=== PATIENT | male | born 1955 | race Caucasian/White ===

== ENCOUNTER 2019-01-02 15:03 | Outpatient (CLI) | payer MEDICARE ==
--- NOTE | 2019-01-02 16:53 | ULT ---
BILATERAL UPPER EXTREMITY VENOUS DOPPLER ULTRASOUND FOR DIALYSIS ACCESS: Date: 01/02/19 HISTORY: End-stage renal disease. FINDINGS: RIGHT UPPER EXTREMITY: The right cephalic vein measures 4.3 mm in the proximal arm, 3.1 mm in the mid arm, 4.0 mm in the dis idania arm, 4.9 mm in the antecubital fossa, 1.9 mm in the proximal forearm, 2.2 mm in the mid forearm, and 1.6 mm in the distal forearm. The right basilic vein measures 7.7 mm in the proximal arm, 5.5 mm in the mid arm, 5.8 mm in the dist al arm, 4.4 mm in the antecubital fossa, 2.0 mm in the proximal forearm, 1.2 mm in the mid forearm, a nd 2.3 mm in the distal forearm. The right brachial artery measures 4.3 mm, radial artery measures 1.9 mm, and ulnar artery measures 1 .7 mm. LEFT UPPER EXTREMITY: The left cephalic vein measures 5.2 mm in the proximal arm, 5.2 mm in the mid arm, 5.2 mm in the dist al arm, 5.8 mm in the antecubital fossa, 3.4 mm in the proximal forearm, 2.1 mm in the mid forearm, a nd 1.7 mm in the distal forearm. The left basilic vein measures 3.9 mm in the proximal arm, 3.8 mm in the mid arm, 3.1 mm in the dista l arm, 3.7 mm in the antecubital fossa, 2.0 mm in the proximal forearm, 1.5 mm in the mid forearm, an d 1.9 mm in the distal forearm. The left brachial artery measures 4.0 mm, radial artery measures 2.3 mm, and ulnar artery measures 1. 5 mm. POS: OFF
== END 2019-01-02 15:04 | disposition home or self-care (01) ==
LOC: BICULT 15:03
PROVIDERS: ATTEND Family Medicine
DX: Z49.01 Encounter for fitting and adjustment of extracorporeal dialysis catheter (principal)
CPT/HCPCS: 93970; G0365

== ENCOUNTER 2019-03-25 11:46 | Day surgery (SDC) | payer MEDICARE ==
[2019-03-24 15:04] VITALS: BMI 25.8
[2019-03-25 12:19] LABS: #Basophils 0.1 thou/uL (0.0-0.2); #Eosinphils 0.4 thou/uL (0.0-0.7); #Monocytes 1.5 thou/uL (0.11-0.59); #Neutrophils 5.8 thou/uL (1.40-6.50); %Eosinophils 4.1 % (0.0-10.0); %Lymphocytes 27.9 % (21.0-51.0); %Monocytes 13.4 % (0.0-10.0); %Neutrophils 53.6 % (42.0-75.0); Hemoglobin 13.3 g/dL (14.0-18.0); Mean Corpuscular HGB CONC 31.8 g/dL (32.0-36.0); Mean Corpuscular Hemoglobin 31.8 pg (27.0-31.0); Mean Platelet Volume 8.8 fL (7.4-10.4); Platelet Count 233 thou/uL (130-400); RBC Distribution Width 15.1 % (11.5-14.5); Red Blood Cell (RBC) Count 4.17 mill/uL (4.70-6.10); White Blood Cell (WBC) Count 10.9 thou/uL (4.8-10.8)
[2019-03-25 12:38] LABS: Anion Gap 20 mmol/L (10-20); BUN (Urea Nitrogen) 44 mg/dL (8.4-25.7); Calc. Creatinine Clearance 8 mL/min (70-130); Calcium 9.2 mg/dL (7.8-10.44); Carbon Dioxide 26 mmol/L (23-31); Chloride 96 mmol/L (98-107); Estimated GFR-MDRD 5; Glucose 85 mg/dL (80-115); Potassium 5.8 mmol/L (3.5-5.1); Sodium 136 mmol/L (136-145)
[2019-03-25] MEDS ORDERED: ceFAZolin Sodium (SDC) 2 GM/100 ML BAG ONE (12:51)
[2019-03-25] MEDS ORDERED: Midazolam HCl 2 mg/2 ml Vial ONE ×2 (12:59→13:14)
[2019-03-25] MEDS ORDERED: Fentanyl 100 MCG/2 ML VIAL ONE (12:59)
[2019-03-25] MEDS ORDERED: Ioversol 68 % 50 ML VIAL ONE (13:12)
[2019-03-25] MEDS ORDERED: Bupivacaine/Epinephrine 0.25% 30 ML VIAL ONE (13:12)
[2019-03-25] MEDS ORDERED: Lidocaine 2% PF 5 ML VIAL ONE (13:12)
[2019-03-25] MEDS ORDERED: Heparin 5,000 UNITS/ML VIAL ONE (13:12)
[2019-03-25] MEDS ORDERED: Protamine Sulfate 50 MG/5 ML VIAL ONE (13:12)
[2019-03-25] MEDS ORDERED: Meperidine HCl/PF 25 MG/ML VIAL ONE (13:14)
[2019-03-25] MEDS ORDERED: Propofol 500 MG/50 ML VIAL ONE (14:13)
[2019-03-25] MEDS ORDERED: Heparin 10,000 UNITS/ 10 ML VIAL ONE ×2 (16:29→16:30)
--- NOTE | 2019-03-28 16:46 | PDOC.OP ---
Operative Note - Operative Note Operative Note: DATE OF PROCEDURE: 03/25/2019 PROCEDURE: Left Mary AV fistula. SURGEON: Heather Mayen M.D. PREOPERATIVE DIAGNOSIS: End-stage renal failure. POSTOPERATIVE DIAGNOSIS: End-stage renal failure. HISTORY: Patient with end-stage renal failure who requires permanent access for ongoing hemodialysis. After reviewing vein mapping the decision was made to proceed with a primary fistula on the left arm. PROCEDURE: After informed consent was obtained and appropriate preoperative antibiotics administered, the patient was taken to the operating room and was placed in supine position and general anesthesia was administered. A preoperative block had been placed by anesthesia and adequacy confirmed. The patient's arm was prepped and draped in standard sterile fashion. The palpable cephalic vein and radial artery were marked on the skin. An incision was made between these 2 structures and dissection carried down to the cephalic vein. This was felt to be of adequate caliber and quality to support an AV fistula. The vein was marked for orientation, ligated and divided distally, and was interrogated with cardiac dilators and easily accepted up to a 3.5 mm dilator. The vein was flushed with heparinized saline and clamped. The radial artery was identified and dissected free and was felt to be of adequate caliber and quality to support a fistula. This was dissected free. Heparin was administered systemically and allowed to circulate for 3 minutes. After the heparin had circulated for 3 minutes, the radial artery was clamped proximally and distally. An anterior arteriotomy was created with an 11 blade and extended with Hunter scissors. The vein was spatulated and an end-to-side anastomosis was created with excellent technical result. Prior to tying down the anastomosis, the arterial inflow was released flushing the anastomosis. The anastomosis was then secured and hemostasis was verified. Flow was established first through the fistula following which flow was restored through the artery. The patient had a palpable thrill in the cephalic vein as well as a good Doppler signal to the level of the antecubital fossa. The wound was irrigated and examined for hemostasis which was again confirmed to be excellent. The subcutaneous tissues were reapproximated with a running 3-0 Monocryl sutures and the skin was closed with running 4-0 subcuticular Monocryl suture. Dermabond dressings were placed. Prior to leaving the operating room the fistula was again examined by Doppler and a good bruit confirmed. The patient was then taken to recovery in good condition. Estimated blood loss was minimal. There were no complications. There were no specimens.
== END 2019-03-25 16:55 | disposition home or self-care (01) ==
LOC: SDC 11:46
PROVIDERS: ATTEND Surgery
PROC: 031C0JF Bypass Left Radial Artery to Lower Arm Vein with Synthetic Substitute, Open Approach (ICD-10-PCS; principal; 2019-03-25)
DX: I12.0 Hypertensive chronic kidney disease with stage 5 chronic kidney disease or end stage renal disease (principal); N18.6 End stage renal disease; I42.9 Cardiomyopathy, unspecified; Z79.01 Long term (current) use of anticoagulants
CPT/HCPCS: 36415; 80048; 85025; 93005; 93010; J0690; J1644; J2001; J2175; J2250; J2704; J2720; J3010; Q9967

== ENCOUNTER 2019-04-17 06:41 | Day surgery (SDC) | payer MEDICARE ==
[2019-04-16 08:32] VITALS: BMI 25.5
[2019-04-17] MEDS ORDERED: Heparin 5,000 UNITS/ML VIAL ONE (07:40)
[2019-04-17] MEDS ORDERED: Lidocaine 2% PF 5 ML VIAL ONE (07:40)
[2019-04-17] MEDS ORDERED: Bupivacaine/Epinephrine 0.25% 30 ML VIAL ONE (07:40)
[2019-04-17] MEDS ORDERED: Protamine Sulfate 50 MG/5 ML VIAL ONE (07:40)
[2019-04-17 07:52] LABS: Hemoglobin 12.3 g/dL (14.0-18.0); Mean Corpuscular HGB CONC 32.4 g/dL (32.0-36.0); Mean Corpuscular Hemoglobin 32.7 pg (27.0-31.0); Mean Platelet Volume 9.4 fL (7.4-10.4); Platelet Count 206 thou/uL (130-400); RBC Distribution Width 14.1 % (11.5-14.5); Red Blood Cell (RBC) Count 3.78 mill/uL (4.70-6.10); White Blood Cell (WBC) Count 11.1 thou/uL (4.8-10.8)
[2019-04-17 07:57] LABS: INR-International Normal Ratio 1.1; Prothrombin Time 13.9 SEC (12.0-14.7)
[2019-04-17] MEDS ORDERED: Fentanyl 100 MCG/2 ML VIAL ONE ×2 (08:01→10:48)
[2019-04-17 08:06] LABS: Anion Gap 16 mmol/L (10-20); BUN (Urea Nitrogen) 48 mg/dL (8.4-25.7); Calc. Creatinine Clearance 9 mL/min (70-130); Calcium 9.4 mg/dL (7.8-10.44); Carbon Dioxide 29 mmol/L (23-31); Chloride 96 mmol/L (98-107); Estimated GFR-MDRD 6; Glucose 90 mg/dL (80-115); Potassium 4.7 mmol/L (3.5-5.1); Sodium 136 mmol/L (136-145)
[2019-04-17 08:09] LABS: Band 2 % (5-11); Eosinophils 3 % (0-10); Lymphocytes 26 % (21-51); MDiff Complete? YES; Monocytes 12 % (0-10); Neutrophil 56 % (42-75); RBC Morphology Normal
[2019-04-17] MEDS ORDERED: Heparin 10,000 UNITS/ 10 ML VIAL ONE ×2 (12:33→13:45)
[2019-04-17] MEDS ORDERED: PROPOFOL 200 MG/20 ML VIAL ONE (13:45)
[2019-04-17] MEDS ORDERED: Glycopyrrolate 0.2 MG/ML 5 ML SYRINGE ONE (13:45)
[2019-04-17] MEDS ORDERED: Vecuronium 10 MG VIAL ONE (13:45)
[2019-04-17] MEDS ORDERED: PHENYLEPHRINE-NS 100 MCG/ML 10 ML SYRINGE ONE (13:45)
[2019-04-17] MEDS ORDERED: ePHEDrine 50 MG/ML VIAL ONE (13:45)
[2019-04-17] MEDS ORDERED: Ondansetron PF 4 MG/2 ML Vial ONE (13:45)
[2019-04-17] MEDS ORDERED: Dexamethasone 20 MG/5 ML VIAL ONE (13:45)
--- NOTE | 2019-04-18 12:46 | OP ---
DATE OF PROCEDURE: 04/17/2019 PROCEDURE: Right radiocephalic/basilic arteriovenous fistula. PREOPERATIVE DIAGNOSIS: End-stage renal failure. POSTOPERATIVE DIAGNOSIS: End-stage renal failure. HISTORY OF PRESENT ILLNESS: Mr. Lutz is a 63-year-old man who underwent a left Mary fistula, and this ultimately failed perhaps due to a pacemaker on that side. He has decided to proceed with a right-sided fistula. DESCRIPTION OF PROCEDURE: After informed consent was obtained and appropriate preoperative antibiotics were administered, the patient was taken to the operating room. He was placed in the supine position, and monitored anesthesia care was administered. A previously-undergone right-sided block and adequacy of the block at the level of wrist and antecubital fossa were confirmed. A palpable cephalic vein was found at the wrist. He was prepped and draped in standard sterile fashion. Marked incision was made between this and the palpable radial pulse, and dissection was carried out to the cephalic vein, which appeared to be of adequate quality and caliber to support a fistula. This was ligated and divided distally, spatulated and interrogated with cardiac dilators, but there was a tight stenosis in the distal third of the forearm, beyond which the dilators could not be passed, so this vein was ligated. Attention was turned to the antecubital fossa. The antecubital vein was palpable as was the brachial pulse. An incision was made between these two structures, and the antecubital vein was identified, dissected free circumferentially. This appeared to be of adequate caliber and quality to support a fistula. It was dissected free distally to a distance adequate to allow it to reach to the location of the artery. The vein was ligated and divided and spatulated, and cardiac dilators were passed up both the cephalic and basilic outflow. These both allowed up to a 4.5 mm dilator to pass. The vein was flushed and clamped with a bulldog clamp. Dissection was carried down to the artery, which was dissected free circumferentially. The proximal radial artery was of adequate caliber and quality to support a fistula. This was dissected free along with the ulnar and radial arteries. Heparin was administered systemically and allowed to circulate for 3 minutes, following which the both branches of the artery were clamped. An anterior arteriotomy was made over the proximal radial artery, and the incision was extended with Hunter scissors. An end-to-side anastomosis was made with a running 6-0 Prolene suture with excellent technical result. Prior to tying the anastomosis down, inflow was released, flushing the anastomosis. The anastomosis was then secured, and flow was established first through the vein and then through the distal arteries. The patient had an excellent thrill and bruit along both the cephalic and basilic outflows and palpable pulses at the wrist. The wound was irrigated and examined for hemostasis, which was found to be excellent. Surgicel was placed into the wound as a precaution, and the incisions at the antecubital and wrist areas were both closed with running 3-0 subcutaneous and running 4-0 subcuticular sutures. Dermabond dressings were placed. Once these were dry, an Juan wrap was placed, and the patient was taken to Recovery in good condition. Estimated blood loss was minimal. There were no complications. There were no specimens. Job ID: [id number]
== END 2019-04-17 12:50 | disposition home or self-care (01) ==
LOC: SDC 06:41
PROVIDERS: ATTEND Surgery
PROC: 051 Upper Veins, Bypass (ICD-10-PCS; principal; 2019-04-17)
DX: I77.0 Arteriovenous fistula, acquired (principal); N18.6 End stage renal disease; Z79.82 Long term (current) use of aspirin; Z79.899 Other long term (current) drug therapy; Z88.2 Allergy status to sulfonamides; Z88.8 Allergy status to other drugs, medicaments and biological substances
CPT/HCPCS: 80048; 85025; 85610; J0131; J0690; J1100; J1644; J2001; J2405; J2704; J2720; J3010; J3490

== ENCOUNTER 2019-05-27 11:08 | Outpatient (CLI) | payer MEDICARE ==
[2019-05-27 13:56] LABS: Hemoglobin 12.2 g/dL (14.0-18.0); Mean Corpuscular HGB CONC 32.8 g/dL (32.0-36.0); Mean Corpuscular Hemoglobin 33.8 pg (27.0-31.0); Mean Platelet Volume 9.6 fL (7.4-10.4); Platelet Count 210 thou/uL (130-400); RBC Distribution Width 14.6 % (11.5-14.5); Red Blood Cell (RBC) Count 3.61 mill/uL (4.70-6.10); White Blood Cell (WBC) Count 9.3 thou/uL (4.8-10.8)
[2019-05-27 14:01] LABS: INR-International Normal Ratio 1.4; Prothrombin Time 17.1 SEC (12.0-14.7)
[2019-05-27 14:02] LABS: PTT 34.3 SEC (22.9-36.1)
[2019-05-27 14:14] LABS: Band 4 % (5-11); Eosinophils 3 % (0-10); Lymphocytes 32 % (21-51); MDiff Complete? YES; Macrocytosis SLIGHT = 6-15 cells (100X) (0-5/hpf); Monocytes 18 % (0-10); Neutrophil 41 % (42-75); Nucleated RBC 2 % (0); Platelet Morphology Comment Appears Adequate; Polychromasia SLIGHT = 2-3 cells (100X) (0-2/hpf); Reactive Lymphocytes 1 % (0-10); Target Cells SLIGHT = 2-5 cells (100X) (0-1/hpf)
[2019-05-27 14:33] LABS: Anion Gap 20 mmol/L (10-20); BUN (Urea Nitrogen) 39 mg/dL (8.4-25.7); Calc. Creatinine Clearance 0 mL/min (70-130); Calcium 9.3 mg/dL (7.8-10.44); Carbon Dioxide 32 mmol/L (23-31); Chloride 90 mmol/L (98-107); Estimated GFR-MDRD 6; Glucose 65 mg/dL (80-115); Potassium 4.7 mmol/L (3.5-5.1); Sodium 137 mmol/L (136-145)
== END 2019-05-27 11:09 | disposition home or self-care (01) ==
LOC: LABBT 11:08
PROVIDERS: ATTEND Surgery
DX: Z01.812 Encounter for preprocedural laboratory examination (principal); N18.6 End stage renal disease
CPT/HCPCS: 80048; 83883; 84165; 85025; 85610; 85730

== ENCOUNTER 2019-06-03 10:01 | Day surgery (SDC) | payer MEDICARE ==
[2019-05-27 11:21] VITALS: BMI 26.6
[2019-06-03] MEDS ORDERED: Midazolam HCl 2 mg/2 ml Vial ONE (12:37)
[2019-06-03] MEDS ORDERED: Fentanyl 100 MCG/2 ML VIAL ONE (12:37)
[2019-06-03] MEDS ORDERED: Bupivacaine/Epinephrine 0.25% 30 ML VIAL ONE (12:40)
[2019-06-03] MEDS ORDERED: Lidocaine 2% PF 5 ML VIAL ONE (12:40)
[2019-06-03] MEDS ORDERED: Ioversol 68 % 50 ML VIAL ONE (12:40)
[2019-06-03] MEDS ORDERED: Protamine Sulfate 50 MG/5 ML VIAL ONE (12:40)
[2019-06-03] MEDS ORDERED: Heparin 5,000 UNITS/ML VIAL ONE (12:40)
[2019-06-03] MEDS ORDERED: Ondansetron HCl/PF 4 MG/2 ML Vial IVP PRN ×2 (14:30→16:24)
[2019-06-03] MEDS ORDERED: Morphine 4 MG/ML VIAL ONE (16:04)
[2019-06-03] MEDS ORDERED: Promethazine HCl 25 MG/ML VIAL IM/IV PRN (16:24)
[2019-06-03] MEDS ORDERED: Non-Formulary Medication 1 EACH PO PRN (16:24)
[2019-06-03] MEDS ORDERED: PACU-Morphine 4MG/ML VIAL SLOW IVP PRN (16:24)
[2019-06-03] MEDS ORDERED: Morphine Sulfate 2 MG/ML SYRINGE SLOW IVP PRN (16:24)
[2019-06-03] MEDS ORDERED: Heparin 10,000 UNITS/ 10 ML VIAL ONE (16:37)
--- NOTE | 2019-06-05 13:48 | PDOC.OP ---
Operative Note - Operative Note Operative Note: DATE OF PROCEDURE: 06/03/2019 PROCEDURE: Right basilic vein transposition fistula. SURGEON: Heather Mayen M.D. PREOPERATIVE DIAGNOSIS: End-stage renal failure. POSTOPERATIVE DIAGNOSIS: End-stage renal failure. HISTORY: Patient with end-stage renal failure. He has a right upper arm basilic fistula which requires transposition to be accessible. The upper arm cephalic vein also has flow, but has not arterialized and is very tortuous. DESCRIPTION OF PROCEDURE: After informed consent was obtained and appropriate neuromuscular blockade was administered, the patient was taken to the operating room and placed in supine position. The arm was prepped and draped in a standard sterile fashion and adequacy of block was confirmed. The distal basilic vein was dissected out to its confluence with the upper arm cephalic vein. The cephalic vein was found to be of adequate caliber near the antecubital fossa to support tranposition, but became narrower further up in the arm. The basilic vein was then dissected free to the level of its confluence with the axillary vein, which was somewhat lower in the arm than usually occurs, ligating side branches as they were encountered. The vein was marked for orientation, clamped and divided at the level of the confluence with the cephalic vein. The basilic vein was compressed at the level of the axilla and heparinized saline was instilled, distending the vein. The vein was checked for leaks and none were seen. The vein was then flushed with heparinized saline and a bulldog clamp placed at the level of the axilla. A 12 mm tunneler was obtained and brought up from the antecubital to the axillary area. The 12 mm tip was removed and a 6 mm tip placed and the basilic vein was secured to this. The basilic vein was drawn down through the subcutaneous tunnel being careful not to twist the vein. This was found easily to reach to the proximal cephalic vein which was of adequate quality and caliber to support transposition. Heparin was then administered systemically and allowed to circulate for 3 minutes. The proximal cephalic vein was clamped and divided obliquely to create a wide anastomosis. The distal portion of the cephalic vein was ligated. An end-to-side anastomosis was created between the basilic vein and the cephalic stump with a running 6-0 Prolene suture with excellent technical result. Prior to completing the anastomosis, the inflow was released , flushing the anastomosis. The anastomosis was then completed, all clamps were removed and hemostasis verified. The basilic vein stump was closed with a running 4-0 Prolene suture with excellent technical result. There was an excellent thrill through the basilic fistula which was readily palpable beneath the skin. The inner arm wound was then irrigated and hemostasis obtained with Bovie electrocautery. The subcutaneous tissues were closed in two layers with 3 -0 Monocryl suture following which the skin incision was closed with skin geri. Xeroform and Tegaderm dressings were placed and the arm was wrapped with an Juan wrap. The patient was taken to the recovery room in good condition. Estimated blood loss was minimal. There were no complications. There were no specimens.
== END 2019-06-03 17:05 | disposition home or self-care (01) ==
LOC: SDC 10:01
PROVIDERS: ATTEND Surgery
PROC: 05SB0ZZ Reposition Right Basilic Vein, Open Approach (ICD-10-PCS; principal; 2019-06-03)
DX: N18.6 End stage renal disease (principal); I25.2 Old myocardial infarction; Z79.899 Other long term (current) drug therapy; Z88.2 Allergy status to sulfonamides; Z88.8 Allergy status to other drugs, medicaments and biological substances; Z99.2 Dependence on renal dialysis
CPT/HCPCS: J0690; J1644; J2001; J2250; J2270; J2720; J3010; Q9967

== ENCOUNTER 2020-01-06 07:54 | Outpatient (CLI) | payer MEDICARE, OTHER ==
[2020-01-07 11:03] LABS: SARS-CoV-2 MS2 Positive; SARS-CoV-2 N Gene Negative; SARS-CoV-2 S Gene Negative; SARS-CoV-2 orf1ab Negative
== END 2020-01-06 07:55 | disposition home or self-care (01) ==
LOC: LABBT 07:54
PROVIDERS: ATTEND Internal Medicine Gastroenterology
DX: Z01.812 Encounter for preprocedural laboratory examination (principal); Z11.59 Encounter for screening for other viral diseases
CPT/HCPCS: 87635; U0003

== ENCOUNTER 2020-01-07 11:49 | Day surgery (SDC) | payer MEDICARE ==
[2020-01-06 13:50] VITALS: BMI 27.9
[2020-01-07 12:31] LABS: PTT 29.2 sec (22.9-36.1)
[2020-01-07 12:38] LABS: Prothrombin Time 13.1 sec (12.0-14.7)
[2020-01-07] MEDS ORDERED: Sodium Bicarbonate 2.5 MEQ/5 ML VIAL ONE (13:14)
[2020-01-07] MEDS ORDERED: Fentanyl 100 MCG/2 ML VIAL ONE (13:14)
[2020-01-07] MEDS ORDERED: Midazolam HCl 2 mg/2 ml Vial ONE (13:14)
[2020-01-07] MEDS ORDERED: Prevnar 13-Val Conj/PF 0.5 ML SYRINGE IM ONE (14:00)
[2020-01-07 14:37] VITALS: BP 150/74; TEMP 98.2
--- NOTE | 2020-01-07 14:57 | CT ---
CT-guided bone marrow aspiration/biopsy HISTORY: Amyloidosis. FINDINGS: After explaining the procedure and answering all questions, limited CT imaging of the pelvi s was performed with patient prone. Sterile technique, buffered local anesthesia, CT guidance, and a posterior approach were used to care fully advance an 11-gauge bone biopsy needle to the posterior cortex of the left iliac bone. Needle was carefully engaged into the cortex. Blood aspirate and core biopsy were obtained and submitted to pathology for evaluation. Needle was removed. No evidence of complication. Patient tolerated the procedure well and was dismissed in good condition. IMPRESSION : Technically successful CT-guided bone marrow aspiration/biopsy. Pathology is pending.
--- NOTE | 2020-01-08 16:05 | CT ---
CT-guided bone marrow aspiration/biopsy HISTORY: Amyloidosis. FINDINGS: After explaining the procedure and answering all questions, limited CT imaging of the pelvi s was performed with patient prone. Sterile technique, buffered local anesthesia, CT guidance, and a posterior approach were used to care fully advance an 11-gauge bone biopsy needle to the posterior cortex of the left iliac bone. Needle was carefully engaged into the cortex. Blood aspirate and core biopsy were obtained and submitted to pathology for evaluation. Needle was removed. No evidence of complication. Patient tolerated the procedure well and was dismissed in good condition. IMPRESSION : Technically successful CT-guided bone marrow aspiration/biopsy. Pathology is pending. Transcribed Date/Time: 01/08/2020 4:04 PM
== END 2020-01-07 14:15 | disposition home or self-care (01) ==
LOC: CT 11:49
PROVIDERS: ATTEND Internal Medicine Hematology & Oncology
DX: E85.81 Light chain (AL) amyloidosis (principal); I12.0 Hypertensive chronic kidney disease with stage 5 chronic kidney disease or end stage renal disease; N18.6 End stage renal disease; E78.5 Hyperlipidemia, unspecified; I25.10 Atherosclerotic heart disease of native coronary artery without angina pectoris; I25.2 Old myocardial infarction; Z87.891 Personal history of nicotine dependence; Z88.2 Allergy status to sulfonamides; Z95.5 Presence of coronary angioplasty implant and graft
CPT/HCPCS: 20225; 77012; 85097; 85610; 85730; 88184; 88237; 88264; 88280; 88305; 88311; 88313; J2250; J3010

== ENCOUNTER 2020-01-09 06:24 | Day surgery (SDC) | payer MEDICARE ==
[2020-01-06 15:31] VITALS: BMI 27.0
--- NOTE | 2020-01-09 12:51 | OP ---
DATE OF PROCEDURE: 01/09/2020 PREPROCEDURE DIAGNOSES: 1. History of melena, but with Hemoccult-negative stools in the office recently. 2. Prior history of ulcers within the past couple of years in the duodenum. POSTPROCEDURE DIAGNOSES: 1. Normal esophagus. 2. Mild gastritis, nodular, biopsied in the antrum. No bleeding sites identified. 3. Normal duodenum. RECOMMENDATIONS: 1. Continue omeprazole 20 mg daily. 2. Avoid NSAIDs. 3. Await biopsies. ANESTHESIA: TIVA. DESCRIPTION OF PROCEDURE: After the patient was informed of the risks, benefits, and possible complications of endoscopy, including perforation, reaction to medication, aspiration, informed consent was obtained. The patient was brought to endoscopy suite, where he was sedated in a gradual fashion. Once he was comfortable, a bite block was placed inside the orifice. The endoscope was advanced through the esophagus, stomach, and second and third portions of the duodenum and slowly removed. There was good visualization of the mucosa. His esophagus appeared normal with no evidence of ulcers or erosions. There was a small hiatal hernia with no stricture or lesions. The stomach was notable for mild heme staining and nodular mucosa in the antrum. There was no overt ulcers or erosions. Retroflexed views were normal in the GE junction and proximal stomach. Biopsies taken from the antrum of the stomach. The scope was advanced to the duodenum, which was normal with no evidence of erosions or ulcers or bleeding sites. The scope was then removed. The patient tolerated the procedure well without any complications. Job ID: [id number]
[2020-01-09] MEDS ORDERED: PROPOFOL 200 MG/20 ML VIAL ONE (13:52)
[2020-01-09] MEDS ORDERED: Lidocaine 1% PF 5 ML VIAL ONE (13:52)
== END 2020-01-09 09:50 | disposition home or self-care (01) ==
LOC: SDC 06:24
PROVIDERS: ATTEND Internal Medicine Gastroenterology
PROC: 0DB78ZX Excision of Stomach, Pylorus, Via Natural or Artificial Opening Endoscopic, Diagnostic (ICD-10-PCS; principal; 2020-01-09)
DX: K31.89 Other diseases of stomach and duodenum (principal); K92.1 Melena; K44.9 Diaphragmatic hernia without obstruction or gangrene; E85.89 Other amyloidosis; N18.9 Chronic kidney disease, unspecified; I50.9 Heart failure, unspecified; I25.10 Atherosclerotic heart disease of native coronary artery without angina pectoris; Z79.899 Other long term (current) drug therapy; Z88.2 Allergy status to sulfonamides; Z95.810 Presence of automatic (implantable) cardiac defibrillator; Z95.5 Presence of coronary angioplasty implant and graft; Z90.81 Acquired absence of spleen; Z94.84 Stem cells transplant status
CPT/HCPCS: 88305; 88312; J2001; J2704

== ENCOUNTER 2020-08-16 10:01 | Observation (INO) | payer MEDICARE ==
--- NOTE | 2020-08-16 10:41 | RAD ---
PORTABLE CHEST: HISTORY: Chest pain. COMPARISON: 02/07/2017 exam. FINDINGS: Heart size is within normal limits. There are atherosclerotic changes of the aorta. Pacemaker is pr esent. No signs of failure or any definite focal infiltrates. IMPRESSION: No active intrathoracic disease. POS: ARISTIDES
[2020-08-16 10:45] LABS: #Eosinphils 0.2 thou/uL (0.0-0.7); #Monocytes 1.2 thou/uL (0.11-0.59); #Neutrophils 7.6 thou/uL (1.40-6.50); %Basophils 0.4 % (0.0-1.0); %Eosinophils 1.6 % (0.0-10.0); %Monocytes 10.7 % (0.0-10.0); %Neutrophils 69.2 % (42.0-75.0); Hemoglobin 12.5 g/dL (14.0-18.0); Mean Corpuscular HGB CONC 32.5 g/dL (32.0-36.0); Mean Corpuscular Hemoglobin 33.5 pg (27.0-31.0); Platelet Count 185 thou/uL (130-400); RBC Distribution Width 12.8 % (11.5-14.5); Red Blood Cell (RBC) Count 3.73 mill/uL (4.70-6.10)
[2020-08-16 10:58] LABS: ALT (SGPT) 17 U/L (8-55); AST (SGOT) 15 U/L (5-34); Albumin 4.1 g/dL (3.4-4.8); Alkaline Phosphatase 62 U/L (40-110); Anion Gap 26 mmol/L (10-20); BUN (Urea Nitrogen) 91 mg/dL (8.4-25.7); Bilirubin, Total 0.4 mg/dL (0.2-1.2); CK (CPK) 107 U/L (30-200); Calc. Creatinine Clearance 0 mL/min (70-130); Calcium 8.6 mg/dL (7.8-10.44); Carbon Dioxide 22 mmol/L (23-31); Chloride 93 mmol/L (98-107); Globulin 2.9 g/dL (2.4-3.5); Glucose 90 mg/dL (80-115); Lipase 87 U/L (8-78); Potassium 5.7 mmol/L (3.5-5.1); Sodium 135 mmol/L (136-145)
[2020-08-16 12:29] LABS: CKMB 1.5 ng/mL (0-6.6)
[2020-08-16] MEDS ORDERED: HYDROcodone/Acetaminophen 5/325 mg Tablet PO PRN (12:52)
[2020-08-16] MEDS ORDERED: Acetaminophen 325 MG TAB PO PRN (12:52)
[2020-08-16] MEDS ORDERED: Ondansetron ODT 4 MG TAB PO PRN (12:52)
[2020-08-16] MEDS ORDERED: Senokot S 8.6-50 MG TAB PO PRN (12:52)
[2020-08-16] MEDS ORDERED: Nitroglycerin 0.4 MG TAB (25 Tab Bottle) SL PRN (12:57)
[2020-08-16 13:38] LABS: Hemoglobin A1c 4.6 % (4.0-6.0)
[2020-08-16 13:44] LABS: Cardiac Risk 3.7 (Less than 4.5)
--- NOTE | 2020-08-16 14:59 | HP ---
CHIEF COMPLAINT: Chest pain. HISTORY OF PRESENT ILLNESS: A 64-year-old male with a history of coronary artery disease status post stent placement x1 roughly 15 years ago, and end-stage renal disease, on dialysis of Sunday, Sunday, Sunday schedule, follows at [facility], with security assurance specialist, Dr. Alexander, presenting with chest pain. It is mostly exertional for the last few days without any radiation. It is notable when he is trying to do some work around the house. He planned to go for dialysis today; however, he changed his mind, called the EMS because of ongoing chest pain. He received aspirin and nitroglycerin on the way to the ER. Currently, he is chest pain free. He is little hard of hearing. Initial evaluation showed troponin 0.039, potassium of 5.6. EKG, paced rhythm. I believe he is COVID positive, but I do not have it in the system yet. The patient did not have any nausea, vomiting, or diaphoresis during this exertional chest pain. The pain is very similar to the LA he had 15 years ago. REVIEW OF SYSTEMS: Thirteen-point review of systems reviewed with the patient. Pertinent addressed in the history of present illness and the rest are negative. PAST MEDICAL HISTORY: 1. End-stage renal disease, on Sunday, Sunday, Sunday dialysis. 2. Coronary artery disease status post stent x1. 3. Stem-cell transplant for amyloidosis in 2009. 4. Hypertension. SURGICAL HISTORY: 1. Left total knee replacement. 2. Splenectomy. 3. Pacemaker and defibrillator placement. SOCIAL HISTORY: The patient does not smoke or drink alcohol. Lives with family. ALLERGIES: HE IS ALLERGIC TO SULFA. MEDICATIONS: 1. Coreg 3.125 mg twice a day. 2. Entresto 24/26 mg twice a day. 3. Rosuvastatin 10 mg daily. PHYSICAL EXAMINATION: VITAL SIGNS: Temperature is 98.3, pulse 78, blood pressure 160/81, and saturating 98% on room air. GENERAL: The patient is alert, oriented, nontoxic appearing, currently chest- pain free. He also has mild hard of hearing. CARDIOVASCULAR: Regular rate and rhythm without murmurs, rubs, or gallops. LUNGS: Clear to auscultation bilaterally without wheezing, rales, or rhonchi. ABDOMEN: Soft, nontender, and nondistended. Good bowel sounds. EXTREMITIES: Without pitting edema. PSYCHIATRIC: Appropriate mood and affect. DIAGNOSTIC STUDIES: EKG; sinus rhythm, 80 beats per minute. Ventricular pacemaker. No ectopy. Chest x-ray, no active infiltrates. WBC 11, hemoglobin 12.5, and platelets 185. Sodium 135, potassium 5.7, and creatinine 13.12. Troponin 0.039. Lipase 87. IMPRESSION AND PLAN: 1. This is a 64-year-old male with previous history of coronary artery disease, status post stent roughly 15 years ago, presenting with chest pain. 2. End-stage renal disease. He needs to have a dialysis. 3. Mild leukocytosis. 4. Mild elevation in the lipase, suggestive of asymptomatic pancreatitis. Given his mild elevation in lipase, he could have referred pain causing a chest discomfort. However, the patient does have risk factors including coronary artery disease in the past. We will do the stress test in the morning and will also assess his left ventricular function with the echo. DVT prophylaxis with heparin. Continue with his home medication of Entresto, Coreg, as well as rosuvastatin. I do not have the serology for COVID-19 yet, but I will go ahead and do the admission screening. NPO for stress in am. Job ID: [id number] MTDD
[2020-08-16 16:03] VITALS: BMI 29.0
[2020-08-16 16:07] LABS: CKMB 1.7 ng/mL (0-6.6)
[2020-08-16] MEDS ORDERED: Rosuvastatin 10 MG TAB PO SCH (21:00)
[2020-08-16] MEDS: Carvedilol 3.125 MG TAB PO SCH (21:50)
[2020-08-16 22:20] LABS: SARS-CoV-2 MS2 Positive; SARS-CoV-2 N Gene Negative; SARS-CoV-2 S Gene Negative; SARS-CoV-2 by NAA Not Detected (NotDetected); SARS-CoV-2 orf1ab Negative
[2020-08-16 23:58] LABS: Anion Gap 15 mmol/L (10-20); Carbon Dioxide 32 mmol/L (23-31); Chloride 96 mmol/L (98-107); Magnesium 2.4 mg/dL (1.6-2.6); Potassium 5.2 mmol/L (3.5-5.1); Sodium 138 mmol/L (136-145)
[2020-08-17 05:04] LABS: Band 2 % (5-11); Eosinophils 1 % (0-10); Hemoglobin 12.6 g/dL (14.0-18.0); Hypochromia SLIGHT = 6-15 cells (100X) (0-5/hpf); Lymphocytes 29 % (21-51); MDiff Complete? YES; Macrocytosis SLIGHT = 6-15 cells (100X) (0-5/hpf); Mean Corpuscular HGB CONC 33.3 g/dL (32.0-36.0); Mean Corpuscular Hemoglobin 34.2 pg (27.0-31.0); Mean Platelet Volume 9.8 fL (7.4-10.4); Metamyelocyte 1 % (0-0); Monocytes 11 % (0-10); Neutrophil 56 % (42-75); Platelet Count 187 thou/uL (130-400); Platelet Morphology Comment Appears Adequate; RBC Distribution Width 12.8 % (11.5-14.5); Red Blood Cell (RBC) Count 3.69 mill/uL (4.70-6.10); White Blood Cell (WBC) Count 8.6 thou/uL (4.8-10.8)
[2020-08-17 05:21] LABS: ALT (SGPT) 18 U/L (8-55); AST (SGOT) 16 U/L (5-34); Albumin 4.1 g/dL (3.4-4.8); Alkaline Phosphatase 58 U/L (40-110); Anion Gap 17 mmol/L (10-20); BUN (Urea Nitrogen) 37 mg/dL (8.4-25.7); Bilirubin, Total 0.4 mg/dL (0.2-1.2); Calc. Creatinine Clearance 11 mL/min (70-130); Calcium 9.1 mg/dL (7.8-10.44); Carbon Dioxide 28 mmol/L (23-31); Chloride 95 mmol/L (98-107); Glucose 83 mg/dL (80-115); Potassium 4.7 mmol/L (3.5-5.1); Protein, Total 7.1 g/dL (5.8-8.1); Sodium 135 mmol/L (136-145)
[2020-08-17] MEDS ORDERED: Aspirin 81 mg Enteric Coated Tablet PO SCH (09:00)
[2020-08-17] MEDS ORDERED: Multivit, Therapeutic 1 TAB PO SCH (09:00)
[2020-08-17] MEDS: Carvedilol 3.125 MG TAB PO SCH (12:43)
--- NOTE | 2020-08-17 12:58 | NM ---
Radionucleotide stress and rest myocardial perfusion scan with CT attenuation correction and SPECT im aging Left ventricular wall motion evaluation and ejection fraction HISTORY: Chest pain. FINDINGS: Adenosine protocol. Heterogeneous uptake of radiotracer throughout the left ventricular chyna cardium. No focal perfusion defect. QGS analysis of gated SPECT images shows relative diminished motion of the lateral wall base. Ejectio n fraction calculated at 46%. IMPRESSION : No evidence of ischemia. Borderline LVEF 46%
[2020-08-17 15:54] VITALS: BP 146/73; TEMP 97.8
[2020-08-17] MEDS ORDERED: FLU VACC QS2020-21(65YR UP)/PF 240 MCG/0.7 ML SYRINGE IM ONE (16:15)
--- NOTE | 2020-08-17 22:00 | PDOC.DS.DS ---
Provider - Provider Date of Admission: 08/16/20 14:37 Date of Discharge: 08/17/20 Admitting Provider: Edvin Amin MD Primary Care Physician: Fercho Calle MD Course - Hospital Course Hospital Course: Patient is a 64-year-old male with coronary artery disease and end-stage renal disease on hemodialysis followed by Dr. Rod Cooper presented to the emergency room on 08/16 with chest discomfort. Please refer to the history and physical by Dr. Amin for further details. The patient was admitted to the hospital with a diagnosis of chest discomfort rule out acute coronary syndrome. His troponins remained in the indeterminate range with a maximum of 0.087. He underwent a Cardiolite stress test which was ordered on admission that showed ejection fraction of 46 percent without any evidence of ischemia. He is chest pain-free at this time. He will follow-up with Dr. Cooper as outpatient. Patient was evaluated by his primary dumb waiter operator Dr. Alexander and underwent hemodialysis. His potassium on admission was 5.7. Final diagnosis: Chest pain End-stage renal disease on hemodialysis Hyperkalemia Chronic anemia probably due to renal insufficiency Hyperlipidemia Resuscitation Status: 08/17/20 11:29 Resuscitation Status Routine Resuscitation Status: DNAR: NO Resuscitation Discussed with: RN verified with patient/spouse - Labs Lab Results: 08/17/20 04:18 08/17/20 04:18 Abnormal Lab Results - Last 48 hrs 08/16/20 10:31: WBC 11.0 H, RBC 3.73 L, Hgb 12.5 L, Hct 38.5 L, MCV 103.0 H, MCH 33.5 H, Lymphocytes % 18.0 L, Monocytes % 10.7 H, Neutrophils # 7.6 H, Monocytes # 1.2 H 08/16/20 10:31: Sodium 135 L, Potassium 5.7 H, Chloride 93 L, Carbon Dioxide 22 L, Anion Gap 26 H, BUN 91 H, Creatinine 13.12 H, Lipase 87 H 08/16/20 10:31: Troponin I 0.039 H 08/16/20 15:13: Troponin I 0.087 H 08/16/20 16:14: Troponin I 0.085 H 08/16/20 23:34: Potassium 5.2 H, Chloride 96 L, Carbon Dioxide 32 H 08/17/20 04:18: Sodium 135 L, Chloride 95 L, BUN 37 H, Creatinine 8.24 H 08/17/20 04:18: RBC 3.69 L, Hgb 12.6 L, Hct 37.9 L, MCV 103.0 H, MCH 34.2 H, Band Neuts % (Manual) 2 L, Monocytes % (Manual) 11 H - Physical Exam Vitals: Vital Signs (12 hours) Temp Pulse Resp BP Pulse Ox 08/17/20 15:45 97.8 F 77 16 146/73 H 96 08/17/20 12:37 98.4 F 72 13 161/75 H 98 Weight Weight 191 lb 3 oz Physical Exam: The patient was seen and examined on the day of discharge. Plan - Discharge Medications Prescriptions: Nitroglycerin [Nitrostat] 0.4 mg SL Q5MIN PRN #25 tab PRN Reason: Chest Pain Home Medications: Medication Instructions Recorded Confirmed Type Carvedilol 3.125 mg PO BID 03/24/19 08/16/20 History Rosuvastatin Calcium 10 mg PO HS 03/24/19 08/16/20 History Sacubitril/Valsartan [Entresto 24 1 tab PO BID 03/24/19 08/16/20 History mg-26 mg Tablet] Ubidecarenone [CoQ-10] 30 mg PO DAILY 03/24/19 01/06/20 History Multivitamin [Multivitamins] 1 cap PO DAILY 05/27/19 08/16/20 History Omeprazole 20 mg PO DAILY 01/06/20 01/06/20 History Nitroglycerin [Nitrostat] 0.4 mg SL Q5MIN PRN #25 tab 08/17/20 Rx Allergies: Sulfa (Sulfonamide Antibiotics) Allergy (Verified 01/06/20 15:30) - Follow up Plan Referrals: Fercho Calle MD [Primary Care Provider] - 3 Days (PLEASE CALL AND SCHEDULE AN APPOINTMENT. ) Rod Cooper MD [Affiliate] - 3 Days (PLEASE CALL AND SCHEDULE AN APPOINTMENT. ) Disposition: HOME Quality - Care Measures CORE MEASURES:: N/A
== END 2020-08-17 17:03 | disposition home or self-care (01) ==
LOC: ERS 10:01 → 2NO 14:37
PROVIDERS: ADMIT Internal Medicine; ATTEND Internal Medicine
DX: R07.89 Other chest pain (principal); I12.0 Hypertensive chronic kidney disease with stage 5 chronic kidney disease or end stage renal disease; N18.6 End stage renal disease; I25.10 Atherosclerotic heart disease of native coronary artery without angina pectoris; E87.5 Hyperkalemia; D63.1 Anemia in chronic kidney disease; E78.5 Hyperlipidemia, unspecified; D72.829 Elevated white blood cell count, unspecified; Z79.899 Other long term (current) drug therapy; Z88.2 Allergy status to sulfonamides; Z95.5 Presence of coronary angioplasty implant and graft; Z96.652 Presence of left artificial knee joint; Z95.0 Presence of cardiac pacemaker; Z95.810 Presence of automatic (implantable) cardiac defibrillator; Z99.2 Dependence on renal dialysis; Z20.822 Contact with and (suspected) exposure to COVID-19
CPT/HCPCS: 71045; 78452; 80051; 80053; 80061; 82550; 82553; 83036; 83690; 83735; 84484 ×2; 85007; 85027; 93005; 93017; 99285; A9500; G0378 ×3; U0003; 36415; 84443; 85025; 87635; 90935; G0257

== ENCOUNTER 2021-08-23 06:33 | Emergency (ER) | payer MEDICARE ==
[2021-08-23 07:20] LABS: #Basophils 0.1 thou/uL (0.0-0.2); #Eosinphils 0.3 thou/uL (0.0-0.7); #Lymphocytes 2.3 thou/uL (1.20-3.40); #Monocytes 1.5 thou/uL (0.11-0.59); #Neutrophils 5.8 thou/uL (1.40-6.50); %Basophils 0.5 % (0.0-1.0); %Eosinophils 3.3 % (0.0-10.0); %Lymphocytes 23.1 % (21.0-51.0); %Monocytes 14.9 % (0.0-10.0); %Neutrophils 58.1 % (42.0-75.0); Mean Corpuscular HGB CONC 32.9 g/dL (32.0-36.0); Mean Corpuscular Hemoglobin 34.6 pg (27.0-31.0); Mean Platelet Volume 10.3 fL (7.4-10.4); Platelet Count 195 thou/uL (130-400); RBC Distribution Width 12.9 % (11.5-14.5); Red Blood Cell (RBC) Count 3.47 mill/uL (4.70-6.10)
[2021-08-23 07:23] LABS: ALT (SGPT) 14 U/L (8-55); AST (SGOT) 28 U/L (5-34); Albumin 4.1 g/dL (3.4-4.8); Alkaline Phosphatase 63 U/L (40-110); Anion Gap 21 mmol/L (10-20); BUN (Urea Nitrogen) 33 mg/dL (8.4-25.7); Bilirubin, Total 0.6 mg/dL (0.2-1.2); CK (CPK) 44 U/L (30-200); Calc. Creatinine Clearance 0 mL/min (70-130); Calcium 10.2 mg/dL (7.8-10.44); Carbon Dioxide 30 mmol/L (23-31); Chloride 97 mmol/L (98-107); Globulin 3.8 g/dL (2.4-3.5); Glucose 90 mg/dL (80-115); Lipase 60 U/L (8-78); Potassium 5.5 mmol/L (3.5-5.1); Protein, Total 7.9 g/dL (5.8-8.1); Sodium 142 mmol/L (136-145)
[2021-08-23 07:57] LABS: Macrocytosis SLIGHT = 6-15 cells (100X) (0-5/hpf)
[2021-08-23 07:58] LABS: Polychromasia SLIGHT = 2-3 cells (100X) (0-2/hpf)
[2021-08-23] MEDS ORDERED: Nitroglycerin 2% Ointment 1 INCH/1 GM Packet ONE (08:58)
== END 2021-08-23 10:00 | disposition short-term general hospital (02) ==
LOC: ERS 06:33
DX: R07.9 Chest pain, unspecified (principal); E78.00 Pure hypercholesterolemia, unspecified; I25.2 Old myocardial infarction; I12.0 Hypertensive chronic kidney disease with stage 5 chronic kidney disease or end stage renal disease; N18.6 End stage renal disease; Z99.2 Dependence on renal dialysis; Z79.82 Long term (current) use of aspirin; Z79.899 Other long term (current) drug therapy
CPT/HCPCS: 71045; 80053; 82550; 83690; 84484; 85025; 93005

== ENCOUNTER 2021-09-10 20:05 | Emergency (ER) | payer MEDICARE ==
[2021-09-10] MEDS ORDERED: Nitroglycerin 50 MG/250 ML BOT 250 ML ONE (20:44)
[2021-09-10 20:49] LABS: #Basophils 0.1 thou/uL (0.0-0.2); #Eosinphils 0.2 thou/uL (0.0-0.7); #Lymphocytes 2.4 thou/uL (1.20-3.40); #Monocytes 1.1 thou/uL (0.11-0.59); #Neutrophils 5.2 thou/uL (1.40-6.50); %Basophils 0.8 % (0.0-1.0); %Eosinophils 2.5 % (0.0-10.0); %Monocytes 11.8 % (0.0-10.0); Hemoglobin 11.7 g/dL (14.0-18.0); Mean Corpuscular HGB CONC 33.1 g/dL (32.0-36.0); Mean Corpuscular Hemoglobin 35.1 pg (27.0-31.0); Mean Platelet Volume 9.6 fL (7.4-10.4); Platelet Count 209 thou/uL (130-400); RBC Distribution Width 13.4 % (11.5-14.5); Red Blood Cell (RBC) Count 3.35 mill/uL (4.70-6.10)
[2021-09-10 21:08] LABS: ALT (SGPT) 14 U/L (8-55); AST (SGOT) 17 U/L (5-34); Albumin 4.3 g/dL (3.4-4.8); Alkaline Phosphatase 61 U/L (40-110); Anion Gap 22 mmol/L (10-20); BUN (Urea Nitrogen) 40 mg/dL (8.4-25.7); Bilirubin, Total 0.4 mg/dL (0.2-1.2); Calc. Creatinine Clearance 0 mL/min (70-130); Calcium 10.3 mg/dL (7.8-10.44); Carbon Dioxide 30 mmol/L (23-31); Chloride 95 mmol/L (98-107); Globulin 2.7 g/dL (2.4-3.5); Glucose 113 mg/dL (80-115); Potassium 5.1 mmol/L (3.5-5.1); Sodium 142 mmol/L (136-145)
[2021-09-10 21:30] LABS: CKMB 0.4 ng/mL (0-6.6)
[2021-09-10 22:11] LABS: SARS-CoV-2 NAA Rapid Test Not Detected (NotDetected)
== END 2021-09-10 22:40 | disposition short-term general hospital (02) ==
LOC: ERS 20:05
DX: R07.2 Precordial pain (principal); N18.9 Chronic kidney disease, unspecified; R79.89 Other specified abnormal findings of blood chemistry; I16.1 Hypertensive emergency; I25.2 Old myocardial infarction; I10 Essential (primary) hypertension; E78.00 Pure hypercholesterolemia, unspecified; Z99.2 Dependence on renal dialysis; Z79.82 Long term (current) use of aspirin; Z79.899 Other long term (current) drug therapy
CPT/HCPCS: 71045; 71046; 80053; 82553; 83880; 84484; 85025; 93005; U0002; 96365; 96366; 96368

== ENCOUNTER 2023-03-17 11:06 | Inpatient (IN) | payer MEDICARE ==
[2023-03-17] MEDS ORDERED: Heparin 10,000 UNITS/ 10 ML VIAL ONE (11:30)
[2023-03-17 12:04] LABS: Troponin I 0.061 ng/mL (< 0.028)
[2023-03-17 12:08] LABS: ALT (SGPT) 23 U/L (8-55); AST (SGOT) 34 U/L (5-34); Albumin 2.9 g/dL (3.4-4.8); Alkaline Phosphatase 179 U/L (40-110); BUN (Urea Nitrogen) 36 mg/dL (8.4-25.7); Calc. Creatinine Clearance 0 mL/min (70-130); Carbon Dioxide 27 mmol/L (23-31); Chloride 97 mmol/L (98-107); Estimated GFR 11; Globulin 2.7 g/dL (2.4-3.5); Glucose 95 mg/dL (80-115); Potassium 4.2 mmol/L (3.5-5.1); Protein, Total 5.6 g/dL (5.8-8.1); Sodium 136 mmol/L (136-145)
[2023-03-17 12:11] LABS: #Basophils 0.1 thou/uL (0.0-0.2); #Eosinphils 0.1 thou/uL (0.0-0.7); #Monocytes 1.8 thou/uL (0.11-0.59); #Neutrophils 15.2 thou/uL (1.40-6.50); %Basophils 0.3 % (0.0-1.0); %Eosinophils 0.5 % (0.0-10.0); %Lymphocytes 7.2 % (21.0-51.0); %Monocytes 9.7 % (0.0-10.0); %Neutrophils 81.6 % (42.0-75.0); Hemoglobin 12.1 g/dL (14.0-18.0); Mean Corpuscular HGB CONC 33.6 g/dL (32.0-36.0); Mean Corpuscular Hemoglobin 32.5 pg (27.0-31.0); Mean Corpuscular Volume 96.8 fl (78.0-98.0); Mean Platelet Volume 13.6 fL (7.4-10.4); Platelet Count 188 10x3/uL (130-400); RBC Distribution Width 18.7 % (11.5-14.5); Red Blood Cell (RBC) Count 3.72 mill/uL (4.70-6.10); White Blood Cell (WBC) Count 18.6 10x3/uL (4.8-10.8)
[2023-03-17 12:30] LABS: Anion Gap 16 mmol/L (10-20)
[2023-03-17] MEDS ORDERED: Aspirin 81 mg Enteric Coated Tablet ONE (12:37)
[2023-03-17] MEDS ORDERED: fentaNYL 50 mcg/mL 1 mL Vial ONE (12:37)
[2023-03-17] MEDS ORDERED: Aspirin Chewable 81 MG TAB ONE (12:38)
[2023-03-17] MEDS ORDERED: Nitroglycerin 0.4 MG TAB (25 Tab Bottle) SL PRN (12:59)
[2023-03-17] MEDS ORDERED: Ondansetron PF 4 MG/2 ML Vial IVP PRN (13:01)
[2023-03-17 14:15] LABS: Troponin I 0.058 ng/mL (< 0.028)
[2023-03-17] MEDS ORDERED: Dexamethasone 6 MG in Sodium Chloride 0.9% 50 ML IVPB SCH (14:15)
[2023-03-17] MEDS ORDERED: Dexamethasone 10 MG/ML VIAL SLOW IVP SCH (14:15)
[2023-03-17] MEDS: hydrALAZINE 25 MG TAB PO SCH (14:58)
[2023-03-17] MEDS: HYDROcodone/Acetaminophen 7.5/325 mg Tablet PO PRN (14:59)
[2023-03-17] MEDS: Heparin 5,000 UNITS/ML VIAL SC SCH ×2 (15:01→23:31)
[2023-03-17] MEDS: Carvedilol 25 MG TAB PO SCH (17:22)
[2023-03-17] MEDS ORDERED: Rosuvastatin 20 MG TAB PO SCH (21:00)
[2023-03-18] MEDS: hydrALAZINE 25 MG TAB PO SCH ×2 (00:33→08:30)
[2023-03-18 04:56] LABS: #Neutrophils 16.2 thou/uL (1.40-6.50); %Basophils 0.1 % (0.0-1.0); %Lymphocytes 3.9 % (21.0-51.0); %Monocytes 5.4 % (0.0-10.0); Hematocrit 34.8 % (42.0-52.0); Hemoglobin 12.1 g/dL (14.0-18.0); Mean Corpuscular HGB CONC 34.8 g/dL (32.0-36.0); Mean Corpuscular Hemoglobin 32.4 pg (27.0-31.0); Mean Platelet Volume 12.7 fL (7.4-10.4); Platelet Count 204 10x3/uL (130-400); RBC Distribution Width 18.3 % (11.5-14.5); Red Blood Cell (RBC) Count 3.73 mill/uL (4.70-6.10)
[2023-03-18 04:57] LABS: Mean Corpuscular Volume 93.3 fl (78.0-98.0)
[2023-03-18 05:10] LABS: Anion Gap 12 mmol/L (10-20); BUN (Urea Nitrogen) 25 mg/dL (8.4-25.7); Calc. Creatinine Clearance 21 mL/min (70-130); Calcium 9.3 mg/dL (7.8-10.44); Carbon Dioxide 27 mmol/L (23-31); Chloride 98 mmol/L (98-107); Estimated GFR 17; Glucose 133 mg/dL (80-115); Potassium 4.1 mmol/L (3.5-5.1); Sodium 133 mmol/L (136-145)
[2023-03-18] MEDS ORDERED: Ipratropium/Albuterol 3 ML NEB NEB PRN (08:09)
[2023-03-18] MEDS: Folic Acid/Vit B Comp W-C PO SCH (08:30)
[2023-03-18] MEDS: Carvedilol 25 MG TAB PO SCH (08:31)
[2023-03-18] MEDS: Prasugrel 10 MG TAB PO SCH (08:31)
[2023-03-18] MEDS: Heparin 5,000 UNITS/ML VIAL SC SCH (08:32)
[2023-03-18] MEDS: Acetaminophen 325 MG TAB PO PRN (08:44)
[2023-03-18] MEDS ORDERED: Dexamethasone 10 MG/ML VIAL SLOW IVP SCH (09:00)
[2023-03-18] MEDS ORDERED: Aspirin 81 mg Enteric Coated Tablet PO SCH (09:00)
[2023-03-18] MEDS: Ipratropium/Albuterol 3 ML NEB NEB SCH ×4 (10:59→22:40)
[2023-03-18] MEDS: Apixaban 2.5 MG TAB PO SCH (19:50)
[2023-03-18] MEDS: Carvedilol 6.25 MG TAB PO SCH (19:50)
[2023-03-18] MEDS: Sacubitril 49 MG/Valsartan 51 MG TABLET PO SCH (19:51)
[2023-03-18] MEDS: Rosuvastatin 10 MG TAB PO SCH (19:51)
[2023-03-18] MEDS: Gabapentin 300 MG CAP PO SCH (19:51)
[2023-03-18] MEDS: HYDROcodone/Acetaminophen 7.5/325 mg Tablet PO PRN (19:53)
[2023-03-18] MEDS ORDERED: Heparin 5,000 UNITS/ML VIAL SC SCH (21:00)
[2023-03-19] MEDS: Ipratropium/Albuterol 3 ML NEB NEB SCH ×5 (02:06→23:41)
[2023-03-19 08:30] LABS: Hematocrit 33.2 % (42.0-52.0); Hemoglobin 11.6 g/dL (14.0-18.0); Mean Corpuscular HGB CONC 34.9 g/dL (32.0-36.0); Mean Corpuscular Hemoglobin 32.6 pg (27.0-31.0); Mean Corpuscular Volume 93.3 fl (78.0-98.0); Mean Platelet Volume 12.2 fL (7.4-10.4); Platelet Count 261 10x3/uL (130-400); RBC Distribution Width 18.5 % (11.5-14.5); Red Blood Cell (RBC) Count 3.56 mill/uL (4.70-6.10); White Blood Cell (WBC) Count 27.8 10x3/uL (4.8-10.8)
[2023-03-19] MEDS ORDERED: Heparin 10,000 UNITS/ 10 ML VIAL ONE ×2 (08:34→09:12)
[2023-03-19 08:48] LABS: Delete Auto Diff?? YES; Manual Diff?? YES
[2023-03-19 09:28] LABS: Anion Gap 17 mmol/L (10-20); BUN (Urea Nitrogen) 58 mg/dL (8.4-25.7); Calc. Creatinine Clearance 14 mL/min (70-130); Calcium 9.7 mg/dL (7.8-10.44); Carbon Dioxide 25 mmol/L (23-31); Chloride 95 mmol/L (98-107); Estimated GFR 10; Glucose 122 mg/dL (80-115); Potassium 4.5 mmol/L (3.5-5.1); Sodium 132 mmol/L (136-145)
[2023-03-19 09:57] LABS: Band 9 % (5-11); Burr Cells MODERATE= 6-15 cells HPF (0-1); CellaVision Operator ID LAB.GE; Giant Platelets 0.9 % (0-5); Large Platelets 2.9 % (0-5); Lymphocytes 2 % (21-51); Monocytes 3 % (0-10); Neutrophil 81 % (42-75); Platelet Adequacy Comment Platelets Normal; Polychromasia MODERATE = 3-4 cells HPF (0-2); Reactive Lymphocytes 5 % (0-10); Target Cells SLIGHT = 2-5 cells HPF (0-1); Total Cell Count 105; Vacuoles SLIGHT
[2023-03-19] MEDS ORDERED: Polyethylene Glycol 3350 17 GM Packet PO PRN (12:41)
[2023-03-19] MEDS: Folic Acid/Vit B Comp W-C PO SCH (14:29)
[2023-03-19] MEDS: Carvedilol 6.25 MG TAB PO SCH ×2 (14:29→21:08)
[2023-03-19] MEDS: Gabapentin 300 MG CAP PO SCH ×2 (14:29→21:09)
[2023-03-19] MEDS: Sacubitril 49 MG/Valsartan 51 MG TABLET PO SCH ×2 (14:29→21:08)
[2023-03-19] MEDS: Prasugrel 10 MG TAB PO SCH (14:30)
[2023-03-19] MEDS: Apixaban 2.5 MG TAB PO SCH ×2 (14:30→21:09)
[2023-03-19] MEDS: HYDROcodone/Acetaminophen 7.5/325 mg Tablet PO PRN ×2 (16:34→20:04)
[2023-03-19] MEDS: Rosuvastatin 10 MG TAB PO SCH (21:08)
[2023-03-19] MEDS: Senokot S 8.6-50 MG TAB PO SCH (21:09)
[2023-03-20] MEDS: HYDROcodone/Acetaminophen 7.5/325 mg Tablet PO PRN ×4 (02:09→21:39)
[2023-03-20 04:37] LABS: #Monocytes 1.7 thou/uL (0.11-0.59); #Neutrophils 19.4 thou/uL (1.40-6.50); %Basophils 0.1 % (0.0-1.0); %Eosinophils 0.1 % (0.0-10.0); %Monocytes 7.7 % (0.0-10.0); %Neutrophils 86.6 % (42.0-75.0); Hematocrit 33.5 % (42.0-52.0); Hemoglobin 11.7 g/dL (14.0-18.0); Mean Corpuscular HGB CONC 34.9 g/dL (32.0-36.0); Mean Corpuscular Volume 91.5 fl (78.0-98.0); Mean Platelet Volume 12.5 fL (7.4-10.4); Platelet Count 273 10x3/uL (130-400); RBC Distribution Width 18.7 % (11.5-14.5); Red Blood Cell (RBC) Count 3.66 mill/uL (4.70-6.10); White Blood Cell (WBC) Count 22.4 10x3/uL (4.8-10.8)
[2023-03-20 04:59] LABS: Anion Gap 15 mmol/L (10-20); BUN (Urea Nitrogen) 48 mg/dL (8.4-25.7); Calc. Creatinine Clearance 17 mL/min (70-130); Calcium 9.3 mg/dL (7.8-10.44); Carbon Dioxide 27 mmol/L (23-31); Chloride 96 mmol/L (98-107); Estimated GFR 13; Glucose 119 mg/dL (80-115); Potassium 4.3 mmol/L (3.5-5.1); Sodium 134 mmol/L (136-145)
[2023-03-20] MEDS: Ipratropium/Albuterol 3 ML NEB NEB SCH ×4 (07:59→23:04)
[2023-03-20] MEDS ORDERED: Polyethylene Glycol 3350 17 GM Packet PO SCH ×2 (09:30→14:00)
[2023-03-20] MEDS ORDERED: ENEMA PR PRN (09:42)
[2023-03-20] MEDS: Apixaban 2.5 MG TAB PO SCH ×2 (15:02→21:40)
[2023-03-20] MEDS: Prasugrel 10 MG TAB PO SCH (15:02)
[2023-03-20] MEDS: Senokot S 8.6-50 MG TAB PO SCH ×2 (15:02→21:40)
[2023-03-20] MEDS: Carvedilol 6.25 MG TAB PO SCH ×2 (15:02→21:40)
[2023-03-20] MEDS: Sacubitril 49 MG/Valsartan 51 MG TABLET PO SCH ×2 (15:03→21:40)
[2023-03-20] MEDS: Gabapentin 300 MG CAP PO SCH ×2 (15:03→21:40)
[2023-03-20] MEDS: Folic Acid/Vit B Comp W-C PO SCH (15:03)
[2023-03-20] MEDS ORDERED: Methyl Salicylate/Menthol 85 GM TUBE TOP PRN (15:14)
[2023-03-20] MEDS: Lidocaine 4% Patch TD SCH (18:21)
[2023-03-20] MEDS: Docusate 100 MG CAP PO SCH (21:40)
[2023-03-20] MEDS: Rosuvastatin 10 MG TAB PO SCH (21:40)
[2023-03-21] MEDS: HYDROcodone/Acetaminophen 7.5/325 mg Tablet PO PRN ×4 (02:08→21:16)
[2023-03-21 04:51] LABS: #Eosinphils 0.2 thou/uL (0.0-0.7); #Monocytes 1.9 thou/uL (0.11-0.59); #Neutrophils 15.4 thou/uL (1.40-6.50); %Basophils 0.2 % (0.0-1.0); %Eosinophils 0.9 % (0.0-10.0); Hematocrit 36.2 % (42.0-52.0); Hemoglobin 12.8 g/dL (14.0-18.0); Mean Corpuscular HGB CONC 35.4 g/dL (32.0-36.0); Mean Corpuscular Hemoglobin 32.1 pg (27.0-31.0); Mean Corpuscular Volume 90.7 fl (78.0-98.0); Mean Platelet Volume 12.4 fL (7.4-10.4); Platelet Count 294 10x3/uL (130-400); RBC Distribution Width 18.7 % (11.5-14.5); Red Blood Cell (RBC) Count 3.99 mill/uL (4.70-6.10); White Blood Cell (WBC) Count 19.3 10x3/uL (4.8-10.8)
[2023-03-21] MEDS: Transdermal Patch Removal TOP SCH (06:35)
[2023-03-21 07:03] LABS: Anion Gap 16 mmol/L (10-20); BUN (Urea Nitrogen) 43 mg/dL (8.4-25.7); Calc. Creatinine Clearance 18 mL/min (70-130); Calcium 9.3 mg/dL (7.8-10.44); Carbon Dioxide 27 mmol/L (23-31); Chloride 96 mmol/L (98-107); Estimated GFR 15; Glucose 100 mg/dL (80-115); Potassium 4.2 mmol/L (3.5-5.1); Sodium 135 mmol/L (136-145)
[2023-03-21] MEDS: Ipratropium/Albuterol 3 ML NEB NEB SCH ×4 (08:02→23:15)
[2023-03-21] MEDS: Gabapentin 300 MG CAP PO SCH ×2 (08:45→21:17)
[2023-03-21] MEDS: Sacubitril 49 MG/Valsartan 51 MG TABLET PO SCH ×2 (08:45→21:32)
[2023-03-21] MEDS: Carvedilol 6.25 MG TAB PO SCH ×2 (08:45→21:32)
[2023-03-21] MEDS: Docusate 100 MG CAP PO SCH ×2 (08:45→21:13)
[2023-03-21] MEDS: Folic Acid/Vit B Comp W-C PO SCH (08:46)
[2023-03-21] MEDS: Senokot S 8.6-50 MG TAB PO SCH ×2 (08:46→21:14)
[2023-03-21] MEDS: Prasugrel 10 MG TAB PO SCH (08:46)
[2023-03-21] MEDS: Apixaban 2.5 MG TAB PO SCH ×2 (08:46→21:13)
[2023-03-21] MEDS ORDERED: Polyethylene Glycol 3350 17 GM Packet PO PRN (09:00)
[2023-03-21] MEDS: Lidocaine 4% Patch TD SCH (17:13)
[2023-03-21] MEDS: Rosuvastatin 10 MG TAB PO SCH (21:17)
[2023-03-21] MEDS: Dexamethasone 4 MG TAB PO SCH (22:04)
[2023-03-22] MEDS: HYDROcodone/Acetaminophen 7.5/325 mg Tablet PO PRN ×4 (02:51→19:57)
[2023-03-22] MEDS: Dexamethasone 4 MG TAB PO SCH ×3 (02:59→16:39)
[2023-03-22 04:44] LABS: #Monocytes 1.5 thou/uL (0.11-0.59); #Neutrophils 15.5 thou/uL (1.40-6.50); %Basophils 0.2 % (0.0-1.0); %Eosinophils 0.2 % (0.0-10.0); %Lymphocytes 5.9 % (21.0-51.0); %Monocytes 7.9 % (0.0-10.0); %Neutrophils 84.8 % (42.0-75.0); Hematocrit 34.1 % (42.0-52.0); Mean Corpuscular HGB CONC 35.2 g/dL (32.0-36.0); Mean Corpuscular Volume 90.9 fl (78.0-98.0); Mean Platelet Volume 12.3 fL (7.4-10.4); Platelet Count 283 10x3/uL (130-400); RBC Distribution Width 18.5 % (11.5-14.5); Red Blood Cell (RBC) Count 3.75 mill/uL (4.70-6.10); White Blood Cell (WBC) Count 18.3 10x3/uL (4.8-10.8)
[2023-03-22 05:06] LABS: ALT (SGPT) 28 U/L (8-55); AST (SGOT) 29 U/L (5-34); Albumin 2.7 g/dL (3.4-4.8); Alkaline Phosphatase 193 U/L (40-110); Anion Gap 12 mmol/L (10-20); BUN (Urea Nitrogen) 36 mg/dL (8.4-25.7); Bilirubin, Total 1.1 mg/dL (0.2-1.2); CRP (Inflammatory) 16.87 mg/dL (= or < 0.5); Calc. Creatinine Clearance 19 mL/min (70-130); Calcium 9.2 mg/dL (7.8-10.44); Carbon Dioxide 28 mmol/L (23-31); Chloride 95 mmol/L (98-107); Estimated GFR 16; Globulin 2.8 g/dL (2.4-3.5); Glucose 126 mg/dL (80-115); Magnesium 1.9 mg/dL (1.6-2.6); Potassium 4.2 mmol/L (3.5-5.1); Protein, Total 5.5 g/dL (5.8-8.1); Sodium 131 mmol/L (136-145)
[2023-03-22] MEDS: Transdermal Patch Removal TOP SCH (05:27)
[2023-03-22] MEDS: Ipratropium/Albuterol 3 ML NEB NEB SCH ×4 (06:58→23:59)
[2023-03-22] MEDS ORDERED: Heparin 10,000 UNITS/ 10 ML VIAL ONE (08:47)
[2023-03-22] MEDS ORDERED: VANCOMYCIN 1.75 GM/500 ML BAG 1.75 GM in Premix Bag 1 BAG IVPB SCH (09:00)
[2023-03-22] MEDS ORDERED: Gabapentin 300 MG CAP PO SCH (09:00)
[2023-03-22] MEDS ORDERED: Vancomycin 1 GM in Premix Bag 1 BAG IVPB SCH (09:00)
[2023-03-22] MEDS ORDERED: cefTRIAXone\\ROCEPHIN 2 GM in Sodium Chloride 0.9% 100 ML IVPB SCH (10:00)
[2023-03-22] MEDS ORDERED: Vancomycin Diaylsis Sliding Scale (Wt 71-99) FS SCH (11:30)
[2023-03-22] MEDS: Gabapentin 300 MG CAP PO SCH ×2 (13:20→19:57)
[2023-03-22] MEDS: Docusate 100 MG CAP PO SCH ×2 (13:21→19:56)
[2023-03-22] MEDS: Senokot S 8.6-50 MG TAB PO SCH ×2 (13:21→19:56)
[2023-03-22] MEDS: Folic Acid/Vit B Comp W-C PO SCH (13:21)
[2023-03-22] MEDS: Sacubitril 49 MG/Valsartan 51 MG TABLET PO SCH ×2 (13:21→21:54)
[2023-03-22] MEDS: Carvedilol 6.25 MG TAB PO SCH ×2 (13:21→21:53)
[2023-03-22] MEDS: Apixaban 2.5 MG TAB PO SCH ×2 (13:22→19:57)
[2023-03-22] MEDS: Prasugrel 10 MG TAB PO SCH (13:22)
[2023-03-22] MEDS: Lidocaine 4% Patch TD SCH (16:48)
[2023-03-22] MEDS ORDERED: Vancomycin 1.5 GRAM/300 ML BAG 1.5 GM in Premix Bag 1 BAG IVPB SCH (17:00)
[2023-03-22] MEDS: Rosuvastatin 10 MG TAB PO SCH (19:57)
[2023-03-23] MEDS: HYDROcodone/Acetaminophen 7.5/325 mg Tablet PO PRN ×2 (04:38→20:17)
[2023-03-23] MEDS: Transdermal Patch Removal TOP SCH (05:19)
[2023-03-23] MEDS: Ipratropium/Albuterol 3 ML NEB NEB SCH ×3 (06:48→18:48)
[2023-03-23 06:57] LABS: #Monocytes 1.4 thou/uL (0.11-0.59); #Neutrophils 17.9 thou/uL (1.40-6.50); %Basophils 0.1 % (0.0-1.0); %Lymphocytes 4.2 % (21.0-51.0); %Neutrophils 88.2 % (42.0-75.0); Hematocrit 32.7 % (42.0-52.0); Hemoglobin 11.5 g/dL (14.0-18.0); Mean Corpuscular HGB CONC 35.2 g/dL (32.0-36.0); Mean Corpuscular Hemoglobin 32.2 pg (27.0-31.0); Mean Corpuscular Volume 91.6 fl (78.0-98.0); Platelet Count 320 10x3/uL (130-400); RBC Distribution Width 18.1 % (11.5-14.5); Red Blood Cell (RBC) Count 3.57 mill/uL (4.70-6.10); White Blood Cell (WBC) Count 20.4 10x3/uL (4.8-10.8)
[2023-03-23 07:27] LABS: Chloride 95 mmol/L (98-107); Potassium 4.1 mmol/L (3.5-5.1); Sodium 132 mmol/L (136-145)
[2023-03-23 07:28] LABS: Calcium 9.6 mg/dL (7.8-10.44)
[2023-03-23 07:29] LABS: Glucose 133 mg/dL (80-115)
[2023-03-23 07:30] LABS: Anion Gap 16 mmol/L (10-20); Carbon Dioxide 25 mmol/L (23-31)
[2023-03-23 07:31] LABS: Vancomycin, Trough 20.5 ug/mL
[2023-03-23 07:32] LABS: Calc. Creatinine Clearance 19 mL/min (70-130); Estimated GFR 16
[2023-03-23 07:33] LABS: BUN (Urea Nitrogen) 46 mg/dL (8.4-25.7)
[2023-03-23] MEDS ORDERED: Magnesium 2 GM/50 ML(in water) 1 GM in Premix Bag 1 BAG IVPB SCH (08:30)
[2023-03-23] MEDS ORDERED: Heparin 10,000 UNITS/ 10 ML VIAL ONE (08:33)
[2023-03-23] MEDS: Lidocaine 4% Patch TD SCH (14:14)
[2023-03-23] MEDS: Docusate 100 MG CAP PO SCH ×3 (14:14→20:55)
[2023-03-23] MEDS: Sacubitril 49 MG/Valsartan 51 MG TABLET PO SCH ×2 (14:14→20:16)
[2023-03-23] MEDS: Carvedilol 6.25 MG TAB PO SCH ×3 (14:15→20:57)
[2023-03-23] MEDS: Senokot S 8.6-50 MG TAB PO SCH ×2 (14:15→20:16)
[2023-03-23] MEDS: Folic Acid/Vit B Comp W-C PO SCH (14:15)
[2023-03-23] MEDS: Gabapentin 300 MG CAP PO SCH ×2 (14:16→20:16)
[2023-03-23] MEDS: Polyethylene Glycol 3350 17 GM Packet PO SCH (14:16)
[2023-03-23] MEDS: Prasugrel 10 MG TAB PO SCH (14:16)
[2023-03-23] MEDS: AMPicillin 2 GM in Sodium Chloride 0.9% 100 ML IVPB SCH ×2 (14:17→23:52)
[2023-03-23] MEDS: Apixaban 2.5 MG TAB PO SCH ×2 (14:17→20:16)
[2023-03-23] MEDS ORDERED: Vancomycin 250 MG in Sodium Chloride 0.9% 100 ML IVPB SCH (17:00)
[2023-03-23] MEDS: Rosuvastatin 10 MG TAB PO SCH (20:16)
[2023-03-24] MEDS: Ipratropium/Albuterol 3 ML NEB NEB SCH ×3 (00:08→13:37)
[2023-03-24 04:16] LABS: #Monocytes 1.8 thou/uL (0.11-0.59); #Neutrophils 15.2 thou/uL (1.40-6.50); %Basophils 0.1 % (0.0-1.0); %Eosinophils 0.1 % (0.0-10.0); %Lymphocytes 6.3 % (21.0-51.0); %Monocytes 9.6 % (0.0-10.0); %Neutrophils 83.4 % (42.0-75.0); Hematocrit 35.2 % (42.0-52.0); Hemoglobin 12.3 g/dL (14.0-18.0); Mean Corpuscular HGB CONC 34.9 g/dL (32.0-36.0); Mean Corpuscular Hemoglobin 32.3 pg (27.0-31.0); Mean Corpuscular Volume 92.4 fl (78.0-98.0); Mean Platelet Volume 11.7 fL (7.4-10.4); Platelet Count 357 10x3/uL (130-400); RBC Distribution Width 18.5 % (11.5-14.5); Red Blood Cell (RBC) Count 3.81 mill/uL (4.70-6.10); White Blood Cell (WBC) Count 18.2 10x3/uL (4.8-10.8)
[2023-03-24] MEDS: HYDROcodone/Acetaminophen 7.5/325 mg Tablet PO PRN ×3 (04:24→18:25)
[2023-03-24] MEDS: Transdermal Patch Removal TOP SCH (04:25)
[2023-03-24 04:45] LABS: Anion Gap 16 mmol/L (10-20); BUN (Urea Nitrogen) 46 mg/dL (8.4-25.7); Calc. Creatinine Clearance 20 mL/min (70-130); Calcium 9.4 mg/dL (7.8-10.44); Carbon Dioxide 27 mmol/L (23-31); Chloride 96 mmol/L (98-107); Estimated GFR 17; Glucose 114 mg/dL (80-115); Sodium 135 mmol/L (136-145)
[2023-03-24] MEDS ORDERED: Metoprolol Tartrate 5 MG/5 ML VIAL IVP SCH (06:30)
[2023-03-24] MEDS ORDERED: dilTIAZem 25 MG/5 ML VIAL SLOW IVP SCH (08:00)
[2023-03-24] MEDS ORDERED: dilTIAZem 125 MG in Sodium Chloride 0.9% 100 ML IVPB SCH (08:00)
[2023-03-24] MEDS ORDERED: Heparin 10,000 UNITS/ 10 ML VIAL ONE (08:43)
[2023-03-24] MEDS ORDERED: Amiodarone 150 MG, Admixture Fee 1 EACH in Dextrose 5% in Water 100 ML IVPB SCH (09:00)
[2023-03-24] MEDS ORDERED: Sodium Chloride 0.9% 500 ML IVPB SCH (09:00)
[2023-03-24] MEDS ORDERED: Amiodarone 450 MG, Admixture Fee 1 EACH in Dextrose 5% in Water 250 ML IVPB SCH (09:00)
[2023-03-24] MEDS: Carvedilol 6.25 MG TAB PO SCH ×2 (09:27→20:25)
[2023-03-24] MEDS: Sacubitril 49 MG/Valsartan 51 MG TABLET PO SCH ×2 (09:30→20:25)
[2023-03-24] MEDS: Folic Acid/Vit B Comp W-C PO SCH (09:46)
[2023-03-24] MEDS: Apixaban 2.5 MG TAB PO SCH ×2 (09:47→20:26)
[2023-03-24] MEDS: Senokot S 8.6-50 MG TAB PO SCH ×2 (09:47→20:28)
[2023-03-24] MEDS: Docusate 100 MG CAP PO SCH ×2 (09:47→20:28)
[2023-03-24] MEDS: Prasugrel 10 MG TAB PO SCH (09:48)
[2023-03-24] MEDS: Gabapentin 300 MG CAP PO SCH ×2 (09:48→20:26)
[2023-03-24] MEDS: Polyethylene Glycol 3350 17 GM Packet PO SCH (09:49)
[2023-03-24] MEDS: AMPicillin 2 GM in Sodium Chloride 0.9% 100 ML IVPB SCH ×2 (12:10→23:51)
[2023-03-24] MEDS ORDERED: Ipratropium/Albuterol 3 ML NEB NEB PRN (13:43)
[2023-03-24] MEDS: Lidocaine 4% Patch TD SCH ×2 (19:29→19:58)
[2023-03-24] MEDS: Rosuvastatin 10 MG TAB PO SCH (20:26)
[2023-03-25] MEDS: Transdermal Patch Removal TOP SCH (03:46)
[2023-03-25 06:10] LABS: #Eosinphils 0.2 thou/uL (0.0-0.7); #Monocytes 1.9 thou/uL (0.11-0.59); #Neutrophils 10.4 thou/uL (1.40-6.50); %Basophils 0.1 % (0.0-1.0); %Eosinophils 1.6 % (0.0-10.0); %Lymphocytes 10.6 % (21.0-51.0); %Monocytes 13.3 % (0.0-10.0); %Neutrophils 73.9 % (42.0-75.0); Hematocrit 36.3 % (42.0-52.0); Hemoglobin 12.8 g/dL (14.0-18.0); Mean Corpuscular HGB CONC 35.3 g/dL (32.0-36.0); Mean Corpuscular Volume 90.8 fl (78.0-98.0); Mean Platelet Volume 12.1 fL (7.4-10.4); Platelet Count 342 10x3/uL (130-400); RBC Distribution Width 18.5 % (11.5-14.5)
[2023-03-25] MEDS: HYDROcodone/Acetaminophen 7.5/325 mg Tablet PO PRN ×2 (06:27→11:20)
[2023-03-25 06:34] LABS: Anion Gap 13 mmol/L (10-20); BUN (Urea Nitrogen) 34 mg/dL (8.4-25.7); Calc. Creatinine Clearance 23 mL/min (70-130); Calcium 8.8 mg/dL (7.8-10.44); Carbon Dioxide 27 mmol/L (23-31); Chloride 95 mmol/L (98-107); Estimated GFR 21; Glucose 97 mg/dL (80-115); Potassium 3.8 mmol/L (3.5-5.1); Sodium 131 mmol/L (136-145)
[2023-03-25] MEDS: Gabapentin 300 MG CAP PO SCH ×2 (09:29→20:43)
[2023-03-25] MEDS: Carvedilol 6.25 MG TAB PO SCH ×2 (09:29→20:43)
[2023-03-25] MEDS: Sacubitril 49 MG/Valsartan 51 MG TABLET PO SCH ×2 (09:29→20:43)
[2023-03-25] MEDS: Prasugrel 10 MG TAB PO SCH (09:29)
[2023-03-25] MEDS: Docusate 100 MG CAP PO SCH ×2 (09:29→20:43)
[2023-03-25] MEDS: Folic Acid/Vit B Comp W-C PO SCH (09:29)
[2023-03-25] MEDS: Senokot S 8.6-50 MG TAB PO SCH ×2 (09:29→20:42)
[2023-03-25] MEDS: Polyethylene Glycol 3350 17 GM Packet PO SCH (09:29)
[2023-03-25] MEDS: Apixaban 2.5 MG TAB PO SCH ×2 (09:30→20:42)
[2023-03-25] MEDS ORDERED: AMPicillin 2 GM in Sodium Chloride 0.9% 100 ML IVPB SCH (12:00)
[2023-03-25] MEDS ORDERED: Ampicillin 2 GM in Sodium Chloride 0.9% 100 ML IVPB SCH (12:30)
[2023-03-25] MEDS: cefTRIAXone\\ROCEPHIN 2 GM in Sodium Chloride 0.9% 100 ML IVPB SCH (12:57)
[2023-03-25] MEDS: Morphine 2 MG/ML VIAL SLOW IVP PRN (14:14)
[2023-03-25] MEDS: Lidocaine 4% Patch TD SCH ×2 (17:16→17:17)
[2023-03-25] MEDS: Ampicillin 2 GM in Sodium Chloride 0.9% 100 ML IVPB SCH (17:18)
[2023-03-25] MEDS: Amiodarone 200 MG TAB PO SCH (20:42)
[2023-03-25] MEDS: Rosuvastatin 10 MG TAB PO SCH (20:43)
[2023-03-26] MEDS: cefTRIAXone\\ROCEPHIN 2 GM in Sodium Chloride 0.9% 100 ML IVPB SCH ×2 (01:01→14:17)
[2023-03-26] MEDS: HYDROcodone/Acetaminophen 7.5/325 mg Tablet PO PRN ×3 (01:01→14:20)
[2023-03-26] MEDS: Morphine 2 MG/ML VIAL SLOW IVP PRN ×2 (02:20→16:00)
[2023-03-26] MEDS: Transdermal Patch Removal TOP SCH (04:43)
[2023-03-26 05:13] LABS: #Basophils 0.1 thou/uL (0.0-0.2); #Eosinphils 0.4 thou/uL (0.0-0.7); #Monocytes 1.6 thou/uL (0.11-0.59); #Neutrophils 15.3 thou/uL (1.40-6.50); %Basophils 0.3 % (0.0-1.0); %Eosinophils 1.9 % (0.0-10.0); %Lymphocytes 8.4 % (21.0-51.0); %Monocytes 8.3 % (0.0-10.0); %Neutrophils 80.5 % (42.0-75.0); Hematocrit 36.7 % (42.0-52.0); Hemoglobin 12.6 g/dL (14.0-18.0); Mean Corpuscular HGB CONC 34.3 g/dL (32.0-36.0); Mean Corpuscular Hemoglobin 31.3 pg (27.0-31.0); Mean Corpuscular Volume 91.1 fl (78.0-98.0); Platelet Count 321 10x3/uL (130-400); RBC Distribution Width 18.6 % (11.5-14.5); Red Blood Cell (RBC) Count 4.03 mill/uL (4.70-6.10)
[2023-03-26] MEDS: Ampicillin 2 GM in Sodium Chloride 0.9% 100 ML IVPB SCH ×2 (05:34→17:20)
[2023-03-26 05:50] LABS: Anion Gap 17 mmol/L (10-20); BUN (Urea Nitrogen) 56 mg/dL (8.4-25.7); Calc. Creatinine Clearance 16 mL/min (70-130); Calcium 9.2 mg/dL (7.8-10.44); Carbon Dioxide 22 mmol/L (23-31); Chloride 95 mmol/L (98-107); Estimated GFR 13; Glucose 81 mg/dL (80-115); Potassium 4.2 mmol/L (3.5-5.1); Sodium 130 mmol/L (136-145)
[2023-03-26] MEDS ORDERED: Ketamine 50 MG/ML (10ML VIAL) ONE (07:38)
[2023-03-26] MEDS ORDERED: Lidocaine 1% PF 5 ML VIAL ONE (08:07)
[2023-03-26] MEDS ORDERED: PHENYLEPHRINE-NS 100 MCG/ML 10 ML SYRINGE ONE (08:07)
[2023-03-26] MEDS ORDERED: PROPOFOL 200 MG/20 ML VIAL ONE (08:07)
[2023-03-26] MEDS: Senokot S 8.6-50 MG TAB PO SCH ×2 (09:22→21:28)
[2023-03-26] MEDS: Polyethylene Glycol 3350 17 GM Packet PO SCH (09:22)
[2023-03-26] MEDS: Amiodarone 200 MG TAB PO SCH ×2 (09:25→21:25)
[2023-03-26] MEDS: Carvedilol 6.25 MG TAB PO SCH ×2 (09:25→21:19)
[2023-03-26] MEDS: Prasugrel 10 MG TAB PO SCH (09:26)
[2023-03-26] MEDS: Sacubitril 49 MG/Valsartan 51 MG TABLET PO SCH ×2 (09:26→21:19)
[2023-03-26] MEDS: Docusate 100 MG CAP PO SCH ×2 (09:27→21:25)
[2023-03-26] MEDS: Gabapentin 300 MG CAP PO SCH ×2 (09:27→21:18)
[2023-03-26] MEDS: Folic Acid/Vit B Comp W-C PO SCH (09:27)
[2023-03-26] MEDS ORDERED: Heparin 10,000 UNITS/ 10 ML VIAL ONE (10:21)
[2023-03-26] MEDS: Lidocaine 4% Patch TD SCH (15:21)
[2023-03-26] MEDS: Acetaminophen 325 MG TAB PO PRN (21:19)
[2023-03-26] MEDS: Rosuvastatin 10 MG TAB PO SCH (21:19)
[2023-03-27] MEDS: Ampicillin 2 GM in Sodium Chloride 0.9% 100 ML IVPB SCH ×2 (05:10→17:30)
[2023-03-27] MEDS: Transdermal Patch Removal TOP SCH (05:11)
[2023-03-27] MEDS: Acetaminophen 325 MG TAB PO PRN (05:28)
[2023-03-27] MEDS: HYDROcodone/Acetaminophen 7.5/325 mg Tablet PO PRN ×2 (06:14→22:18)
[2023-03-27] MEDS: Amiodarone 200 MG TAB PO SCH ×2 (08:11→22:14)
[2023-03-27] MEDS: Folic Acid/Vit B Comp W-C PO SCH (08:11)
[2023-03-27] MEDS: Senokot S 8.6-50 MG TAB PO SCH ×2 (08:11→22:14)
[2023-03-27] MEDS: Prasugrel 10 MG TAB PO SCH (08:11)
[2023-03-27] MEDS: Carvedilol 6.25 MG TAB PO SCH ×2 (08:12→22:14)
[2023-03-27] MEDS: Docusate 100 MG CAP PO SCH ×2 (08:12→22:14)
[2023-03-27] MEDS: Sacubitril 49 MG/Valsartan 51 MG TABLET PO SCH ×2 (08:12→22:14)
[2023-03-27] MEDS: Gabapentin 300 MG CAP PO SCH ×2 (08:12→22:14)
[2023-03-27] MEDS: Morphine 2 MG/ML VIAL SLOW IVP PRN ×2 (08:13→13:19)
[2023-03-27] MEDS: Polyethylene Glycol 3350 17 GM Packet PO SCH (08:14)
[2023-03-27] MEDS ORDERED: Morphine 4 MG/ML VIAL ONE (08:51)
[2023-03-27] MEDS ORDERED: Morphine 2 MG/ML VIAL SLOW IVP SCH (09:00)
[2023-03-27] MEDS: Rosuvastatin 10 MG TAB PO SCH (22:14)
[2023-03-28] MEDS: Acetaminophen 325 MG TAB PO PRN ×3 (00:01→16:05)
[2023-03-28] MEDS: Transdermal Patch Removal TOP SCH (05:38)
[2023-03-28] MEDS: Ampicillin 2 GM in Sodium Chloride 0.9% 100 ML IVPB SCH ×2 (05:38→17:04)
[2023-03-28] MEDS: Polyethylene Glycol 3350 17 GM Packet PO SCH (11:49)
[2023-03-28] MEDS: Amiodarone 200 MG TAB PO SCH ×2 (11:50→20:49)
[2023-03-28] MEDS: Prasugrel 10 MG TAB PO SCH (11:50)
[2023-03-28] MEDS: Senokot S 8.6-50 MG TAB PO SCH ×2 (11:50→20:49)
[2023-03-28] MEDS: Gabapentin 300 MG CAP PO SCH ×2 (11:51→20:50)
[2023-03-28] MEDS: Sacubitril 49 MG/Valsartan 51 MG TABLET PO SCH ×2 (11:51→20:49)
[2023-03-28] MEDS: Docusate 100 MG CAP PO SCH ×2 (11:51→20:49)
[2023-03-28] MEDS: Carvedilol 6.25 MG TAB PO SCH ×2 (11:51→20:50)
[2023-03-28] MEDS: Folic Acid/Vit B Comp W-C PO SCH (11:51)
[2023-03-28] MEDS: Morphine 2 MG/ML VIAL SLOW IVP PRN ×2 (12:13→20:46)
[2023-03-28] MEDS ORDERED: Heparin 10,000 UNITS/ 10 ML VIAL ONE (15:32)
[2023-03-28] MEDS: Lidocaine 4% Patch TD SCH (16:04)
[2023-03-28] MEDS: Rosuvastatin 10 MG TAB PO SCH (20:50)
[2023-03-29] MEDS: Acetaminophen 325 MG TAB PO PRN ×2 (00:10→13:48)
[2023-03-29] MEDS: Transdermal Patch Removal TOP SCH (03:35)
[2023-03-29] MEDS: Ampicillin 2 GM in Sodium Chloride 0.9% 100 ML IVPB SCH ×2 (05:19→17:41)
[2023-03-29] MEDS: Docusate 100 MG CAP PO SCH ×2 (08:34→22:32)
[2023-03-29] MEDS: Folic Acid/Vit B Comp W-C PO SCH (08:34)
[2023-03-29] MEDS: Amiodarone 200 MG TAB PO SCH ×2 (08:36→22:33)
[2023-03-29] MEDS: Prasugrel 10 MG TAB PO SCH (08:36)
[2023-03-29] MEDS: Gabapentin 300 MG CAP PO SCH ×2 (08:36→22:32)
[2023-03-29] MEDS: Senokot S 8.6-50 MG TAB PO SCH ×2 (08:36→22:32)
[2023-03-29] MEDS: Carvedilol 6.25 MG TAB PO SCH ×2 (08:37→22:32)
[2023-03-29] MEDS: Sacubitril 49 MG/Valsartan 51 MG TABLET PO SCH ×2 (08:37→22:32)
[2023-03-29] MEDS: Polyethylene Glycol 3350 17 GM Packet PO SCH (08:40)
[2023-03-29] MEDS ORDERED: Heparin 10,000 UNITS/ 10 ML VIAL SLOW IVP SCH (11:15)
[2023-03-29] MEDS ORDERED: Heparin 25,000 units/D5W 500 ML IVPB SCH (11:15)
[2023-03-29 13:11] LABS: Hemoglobin 10.6 g/dL (14.0-18.0); Platelet Count 355 10x3/uL (130-400)
[2023-03-29 13:27] LABS: INR-International Normal Ratio 1.2; PTT 35.7 sec (22.9-36.1); Prothrombin Time 15.3 sec (12.0-14.7)
[2023-03-29] MEDS: Lidocaine 4% Patch TD SCH (17:10)
[2023-03-29] MEDS: Morphine 2 MG/ML VIAL SLOW IVP PRN ×2 (17:52→23:09)
[2023-03-29] MEDS ORDERED: GoLYTELY 4,000 ml Bottle PO SCH (19:15)
[2023-03-29] MEDS: Rosuvastatin 10 MG TAB PO SCH (22:32)
[2023-03-30] MEDS: Transdermal Patch Removal TOP SCH (02:02)
[2023-03-30 02:51] LABS: #Basophils 0.1 thou/uL (0.0-0.2); #Eosinphils 0.2 thou/uL (0.0-0.7); #Monocytes 1.7 thou/uL (0.11-0.59); #Neutrophils 12.6 thou/uL (1.40-6.50); %Basophils 0.5 % (0.0-1.0); %Eosinophils 1.1 % (0.0-10.0); %Lymphocytes 10.9 % (21.0-51.0); %Monocytes 10.1 % (0.0-10.0); %Neutrophils 76.8 % (42.0-75.0); Hematocrit 31.7 % (42.0-52.0); Hemoglobin 10.7 g/dL (14.0-18.0); Mean Corpuscular HGB CONC 33.8 g/dL (32.0-36.0); Mean Corpuscular Hemoglobin 31.3 pg (27.0-31.0); Mean Corpuscular Volume 92.7 fl (78.0-98.0); Mean Platelet Volume 11.9 fL (7.4-10.4); Platelet Count 380 10x3/uL (130-400); RBC Distribution Width 18.4 % (11.5-14.5); Red Blood Cell (RBC) Count 3.42 mill/uL (4.70-6.10); White Blood Cell (WBC) Count 16.4 10x3/uL (4.8-10.8)
[2023-03-30 03:18] LABS: PTT 126.3 sec (22.9-36.1)
[2023-03-30] MEDS: Acetaminophen 325 MG TAB PO PRN (05:13)
[2023-03-30] MEDS: Ampicillin 2 GM in Sodium Chloride 0.9% 100 ML IVPB SCH ×2 (05:14→21:32)
[2023-03-30] MEDS: Gabapentin 300 MG CAP PO SCH ×2 (10:07→21:34)
[2023-03-30] MEDS: Sacubitril 49 MG/Valsartan 51 MG TABLET PO SCH ×2 (10:07→21:33)
[2023-03-30] MEDS: Senokot S 8.6-50 MG TAB PO SCH ×2 (10:07→21:33)
[2023-03-30] MEDS: Prasugrel 10 MG TAB PO SCH (10:07)
[2023-03-30] MEDS: Amiodarone 200 MG TAB PO SCH ×2 (10:07→21:33)
[2023-03-30] MEDS: Folic Acid/Vit B Comp W-C PO SCH (10:07)
[2023-03-30] MEDS: Polyethylene Glycol 3350 17 GM Packet PO SCH (10:08)
[2023-03-30] MEDS: Carvedilol 6.25 MG TAB PO SCH ×2 (10:08→21:35)
[2023-03-30] MEDS: Docusate 100 MG CAP PO SCH ×2 (10:08→21:34)
[2023-03-30] MEDS ORDERED: Lidocaine 1% PF 5 ML VIAL ONE (14:17)
[2023-03-30] MEDS ORDERED: ePHEDrine Sulfate 50 MG/10 ML VIAL ONE (14:17)
[2023-03-30] MEDS ORDERED: PROPOFOL 200 MG/20 ML VIAL ONE (14:17)
[2023-03-30] MEDS ORDERED: PHENYLEPHRINE-NS 100 MCG/ML 10 ML SYRINGE ONE (14:17)
[2023-03-30] MEDS: Lidocaine 4% Patch TD SCH (17:06)
[2023-03-30] MEDS: Rosuvastatin 10 MG TAB PO SCH (21:35)
[2023-03-31] MEDS: Morphine 2 MG/ML VIAL SLOW IVP PRN ×2 (04:19→10:18)
[2023-03-31] MEDS: Transdermal Patch Removal TOP SCH (05:01)
[2023-03-31] MEDS: Sacubitril 49 MG/Valsartan 51 MG TABLET PO SCH ×3 (05:01→20:43)
[2023-03-31] MEDS: Ampicillin 2 GM in Sodium Chloride 0.9% 100 ML IVPB SCH ×2 (05:29→19:43)
[2023-03-31 06:31] LABS: #Basophils 0.1 thou/uL (0.0-0.2); #Eosinphils 0.2 thou/uL (0.0-0.7); #Monocytes 1.6 thou/uL (0.11-0.59); %Basophils 0.4 % (0.0-1.0); %Eosinophils 1.4 % (0.0-10.0); %Lymphocytes 12.2 % (21.0-51.0); %Monocytes 14.6 % (0.0-10.0); Hematocrit 26.9 % (42.0-52.0); Hemoglobin 9.2 g/dL (14.0-18.0); Mean Corpuscular HGB CONC 34.2 g/dL (32.0-36.0); Mean Corpuscular Hemoglobin 31.8 pg (27.0-31.0); Mean Corpuscular Volume 93.1 fl (78.0-98.0); Mean Platelet Volume 11.3 fL (7.4-10.4); Platelet Count 314 10x3/uL (130-400); RBC Distribution Width 18.5 % (11.5-14.5); Red Blood Cell (RBC) Count 2.89 mill/uL (4.70-6.10); White Blood Cell (WBC) Count 11.2 10x3/uL (4.8-10.8)
[2023-03-31 06:52] LABS: ALT (SGPT) 21 U/L (8-55); AST (SGOT) 18 U/L (5-34); Albumin 2.5 g/dL (3.4-4.8); Alkaline Phosphatase 196 U/L (40-110); Anion Gap 16 mmol/L (10-20); BUN (Urea Nitrogen) 24 mg/dL (8.4-25.7); Bilirubin, Total 0.5 mg/dL (0.2-1.2); CRP (Inflammatory) 9.49 mg/dL (= or < 0.5); Calc. Creatinine Clearance 16 mL/min (70-130); Carbon Dioxide 26 mmol/L (23-31); Chloride 97 mmol/L (98-107); Estimated GFR 13; Globulin 2.7 g/dL (2.4-3.5); Glucose 79 mg/dL (80-115); Potassium 3.8 mmol/L (3.5-5.1); Protein, Total 5.2 g/dL (5.8-8.1); Sodium 135 mmol/L (136-145)
[2023-03-31] MEDS: Carvedilol 6.25 MG TAB PO SCH ×2 (08:39→20:44)
[2023-03-31] MEDS: Amiodarone 200 MG TAB PO SCH ×2 (08:39→20:43)
[2023-03-31] MEDS: Gabapentin 300 MG CAP PO SCH ×2 (08:39→20:44)
[2023-03-31] MEDS: Senokot S 8.6-50 MG TAB PO SCH ×2 (08:39→20:43)
[2023-03-31] MEDS: Prasugrel 10 MG TAB PO SCH (08:40)
[2023-03-31] MEDS: Docusate 100 MG CAP PO SCH (08:40)
[2023-03-31] MEDS: Folic Acid/Vit B Comp W-C PO SCH (08:40)
[2023-03-31] MEDS: Polyethylene Glycol 3350 17 GM Packet PO SCH (08:40)
[2023-03-31 11:38] LABS: Hemoglobin 9.3 g/dL (14.0-18.0); Platelet Count 318 10x3/uL (130-400)
[2023-03-31] MEDS ORDERED: Mupirocin 2% Ointment 22 GM Tube TOP SCH (12:42)
[2023-03-31] MEDS ORDERED: Methocarbamol 500 MG TAB PO SCH (13:00)
[2023-03-31] MEDS ORDERED: Iopamidol-370 76% 500 ML MDV (1 ML CHARGE) ONE (15:01)
[2023-03-31] MEDS: Lidocaine 4% Patch TD SCH (15:15)
[2023-03-31] MEDS: Apixaban 5 MG TAB PO SCH (20:43)
[2023-03-31] MEDS: Rosuvastatin 10 MG TAB PO SCH (20:44)
[2023-03-31] MEDS: Mupirocin 2% Ointment 22 GM Tube TOP SCH (20:47)
[2023-03-31] MEDS ORDERED: Apixaban 2.5 MG TAB PO SCH (21:00)
[2023-04-01] MEDS: traMADol HCl 50 MG TAB PO PRN (01:23)
[2023-04-01] MEDS: Transdermal Patch Removal TOP SCH (04:28)
[2023-04-01] MEDS: Ampicillin 2 GM in Sodium Chloride 0.9% 100 ML IVPB SCH ×2 (06:05→17:11)
[2023-04-01 06:44] LABS: #Basophils 0.1 thou/uL (0.0-0.2); #Eosinphils 0.2 thou/uL (0.0-0.7); #Monocytes 1.8 thou/uL (0.11-0.59); #Neutrophils 9.6 thou/uL (1.40-6.50); %Basophils 0.5 % (0.0-1.0); %Eosinophils 1.4 % (0.0-10.0); %Lymphocytes 10.4 % (21.0-51.0); %Monocytes 13.5 % (0.0-10.0); %Neutrophils 73.4 % (42.0-75.0); Hematocrit 26.5 % (42.0-52.0); Hemoglobin 9.1 g/dL (14.0-18.0); Mean Corpuscular HGB CONC 34.3 g/dL (32.0-36.0); Mean Corpuscular Hemoglobin 31.4 pg (27.0-31.0); Mean Corpuscular Volume 91.4 fl (78.0-98.0); Mean Platelet Volume 11.8 fL (7.4-10.4); Platelet Count 315 10x3/uL (130-400); RBC Distribution Width 18.7 % (11.5-14.5); White Blood Cell (WBC) Count 13.1 10x3/uL (4.8-10.8)
[2023-04-01 07:04] LABS: Anion Gap 18 mmol/L (10-20); BUN (Urea Nitrogen) 37 mg/dL (8.4-25.7); CRP (Inflammatory) 9.68 mg/dL (= or < 0.5); Calc. Creatinine Clearance 12 mL/min (70-130); Calcium 9.5 mg/dL (7.8-10.44); Carbon Dioxide 25 mmol/L (23-31); Chloride 95 mmol/L (98-107); Estimated GFR 9; Glucose 92 mg/dL (80-115); Sodium 134 mmol/L (136-145)
[2023-04-01] MEDS ORDERED: Apixaban 5 MG TAB PO SCH (09:00)
[2023-04-01] MEDS: Apixaban 5 MG TAB PO SCH ×2 (09:43→20:56)
[2023-04-01] MEDS: Amiodarone 200 MG TAB PO SCH ×2 (09:43→20:55)
[2023-04-01] MEDS: Polyethylene Glycol 3350 17 GM Packet PO SCH (09:43)
[2023-04-01] MEDS: Senokot S 8.6-50 MG TAB PO SCH ×2 (09:43→20:56)
[2023-04-01] MEDS: Acetaminophen 325 MG TAB PO PRN ×2 (09:44→21:00)
[2023-04-01] MEDS: Carvedilol 6.25 MG TAB PO SCH ×2 (09:44→20:55)
[2023-04-01] MEDS: Gabapentin 300 MG CAP PO SCH ×2 (09:46→20:55)
[2023-04-01] MEDS: Folic Acid/Vit B Comp W-C PO SCH (09:47)
[2023-04-01] MEDS: Sacubitril 49 MG/Valsartan 51 MG TABLET PO SCH ×2 (09:47→20:55)
[2023-04-01] MEDS: Mupirocin 2% Ointment 22 GM Tube TOP SCH ×3 (09:47→20:56)
[2023-04-01] MEDS: Prasugrel 10 MG TAB PO SCH (09:47)
[2023-04-01] MEDS ORDERED: Heparin 10,000 UNITS/ 10 ML VIAL ONE (12:38)
[2023-04-01] MEDS: Lidocaine 4% Patch TD SCH (17:11)
[2023-04-01] MEDS: Rosuvastatin 10 MG TAB PO SCH (20:56)
[2023-04-02] MEDS: Transdermal Patch Removal TOP SCH ×2 (04:55→20:42)
[2023-04-02] MEDS: Ampicillin 2 GM in Sodium Chloride 0.9% 100 ML IVPB SCH ×2 (04:55→17:15)
[2023-04-02 05:10] LABS: #Basophils 0.1 thou/uL (0.0-0.2); #Eosinphils 0.3 thou/uL (0.0-0.7); #Monocytes 1.7 thou/uL (0.11-0.59); #Neutrophils 7.2 thou/uL (1.40-6.50); %Basophils 0.6 % (0.0-1.0); %Eosinophils 2.7 % (0.0-10.0); %Lymphocytes 14.7 % (21.0-51.0); %Monocytes 15.4 % (0.0-10.0); Hematocrit 25.1 % (42.0-52.0); Hemoglobin 8.7 g/dL (14.0-18.0); Mean Corpuscular HGB CONC 34.7 g/dL (32.0-36.0); Mean Corpuscular Hemoglobin 31.9 pg (27.0-31.0); Mean Corpuscular Volume 91.9 fl (78.0-98.0); Mean Platelet Volume 11.4 fL (7.4-10.4); Platelet Count 304 10x3/uL (130-400); RBC Distribution Width 18.7 % (11.5-14.5); Red Blood Cell (RBC) Count 2.73 mill/uL (4.70-6.10); White Blood Cell (WBC) Count 10.8 10x3/uL (4.8-10.8)
[2023-04-02 05:33] LABS: Anion Gap 12 mmol/L (10-20); BUN (Urea Nitrogen) 29 mg/dL (8.4-25.7); Calc. Creatinine Clearance 14 mL/min (70-130); Calcium 9.1 mg/dL (7.8-10.44); Carbon Dioxide 27 mmol/L (23-31); Chloride 97 mmol/L (98-107); Estimated GFR 11; Glucose 88 mg/dL (80-115); Potassium 3.9 mmol/L (3.5-5.1); Sodium 132 mmol/L (136-145)
[2023-04-02] MEDS: Carvedilol 6.25 MG TAB PO SCH ×2 (08:59→20:41)
[2023-04-02] MEDS: Polyethylene Glycol 3350 17 GM Packet PO SCH (08:59)
[2023-04-02] MEDS: Senokot S 8.6-50 MG TAB PO SCH ×2 (09:54→20:41)
[2023-04-02] MEDS: Gabapentin 300 MG CAP PO SCH ×2 (09:54→20:42)
[2023-04-02] MEDS: Acetaminophen 325 MG TAB PO PRN (09:55)
[2023-04-02] MEDS: Amiodarone 200 MG TAB PO SCH ×2 (09:55→20:41)
[2023-04-02] MEDS: Sacubitril 49 MG/Valsartan 51 MG TABLET PO SCH ×2 (09:56→20:41)
[2023-04-02] MEDS: Apixaban 5 MG TAB PO SCH ×2 (09:56→20:41)
[2023-04-02] MEDS: Prasugrel 10 MG TAB PO SCH (09:56)
[2023-04-02] MEDS: Folic Acid/Vit B Comp W-C PO SCH (09:56)
[2023-04-02] MEDS: Mupirocin 2% Ointment 22 GM Tube TOP SCH ×3 (11:30→20:46)
[2023-04-02 11:50] LABS: Hematocrit 27.1 % (42.0-52.0); Hemoglobin 9.4 g/dL (14.0-18.0); Platelet Count 306 10x3/uL (130-400)
[2023-04-02] MEDS: Lidocaine 4% Patch TD PRN (16:40)
[2023-04-02] MEDS: Rosuvastatin 10 MG TAB PO SCH (20:41)
[2023-04-02] MEDS: Melatonin 3 MG TAB PO PRN (20:42)
[2023-04-03 01:11] LABS: Bacteria/HPF None Seen HPF (None Seen); Bilirubin Negative (Negative); Blood, Urine 1+ (Negative); CAUTI Indications for Culture Dysuria,urgency,freq; Clarity Clear (Clear); Glucose, Urine (Dipstick) Normal (Negative); Ketone, Urine Negative (Negative); Leukocyte Negative Leu/uL (Negative); Nitrite Negative (Negative); Protein, Urine (Dipstick) 100 mg/dL (Neg-Trace); Squamous Epithelial 0-3 HPF (0-3); Urobilinogen Normal mg/dL (Less than 2); WBC/HPF 0-3 HPF (0-3)
[2023-04-03 01:17] LABS: Urine Culture Reflex No No
[2023-04-03] MEDS: Ampicillin 2 GM in Sodium Chloride 0.9% 100 ML IVPB SCH ×2 (05:25→17:42)
[2023-04-03 06:08] LABS: Albumin 2.7 g/dL (3.4-4.8); Anion Gap 14 mmol/L (10-20); BUN (Urea Nitrogen) 39 mg/dL (8.4-25.7); BUN/Creatinine Ratio 5.35; Calc. Creatinine Clearance 10 mL/min (70-130); Calcium 9.4 mg/dL (7.8-10.44); Carbon Dioxide 26 mmol/L (23-31); Chloride 97 mmol/L (98-107); Estimated GFR 8; Glucose 91 mg/dL (80-115); Phosphorus 4.9 mg/dL (2.3-4.7); Sodium 133 mmol/L (136-145)
[2023-04-03] MEDS: Mupirocin 2% Ointment 22 GM Tube TOP SCH ×3 (10:21→20:34)
[2023-04-03] MEDS: Polyethylene Glycol 3350 17 GM Packet PO SCH (10:21)
[2023-04-03] MEDS: Senokot S 8.6-50 MG TAB PO SCH ×2 (10:22→20:46)
[2023-04-03] MEDS: Folic Acid/Vit B Comp W-C PO SCH (12:25)
[2023-04-03] MEDS: Gabapentin 300 MG CAP PO SCH ×2 (12:25→20:46)
[2023-04-03] MEDS: Sacubitril 49 MG/Valsartan 51 MG TABLET PO SCH ×2 (12:25→20:45)
[2023-04-03] MEDS: Apixaban 5 MG TAB PO SCH ×2 (12:25→20:47)
[2023-04-03] MEDS: Carvedilol 6.25 MG TAB PO SCH ×2 (12:26→20:45)
[2023-04-03] MEDS: Prasugrel 10 MG TAB PO SCH (12:26)
[2023-04-03] MEDS: Amiodarone 200 MG TAB PO SCH ×2 (12:27→20:46)
[2023-04-03] MEDS: Acetaminophen 325 MG TAB PO PRN (12:27)
[2023-04-03] MEDS ORDERED: Methocarbamol 500 MG TAB PO SCH ×2 (16:46→17:00)
[2023-04-03] MEDS: Melatonin 3 MG TAB PO PRN (20:45)
[2023-04-03] MEDS: Transdermal Patch Removal TOP SCH (20:47)
[2023-04-03] MEDS: Rosuvastatin 10 MG TAB PO SCH (20:47)
[2023-04-04] MEDS: Acetaminophen 325 MG TAB PO PRN ×2 (02:26→09:39)
[2023-04-04] MEDS: Lidocaine 4% Patch TD PRN (02:30)
[2023-04-04] MEDS: Ampicillin 2 GM in Sodium Chloride 0.9% 100 ML IVPB SCH ×2 (05:31→18:59)
[2023-04-04 05:52] LABS: #Basophils 0.1 thou/uL (0.0-0.2); #Eosinphils 0.4 thou/uL (0.0-0.7); #Monocytes 1.6 thou/uL (0.11-0.59); #Neutrophils 7.6 thou/uL (1.40-6.50); %Basophils 0.8 % (0.0-1.0); %Eosinophils 3.9 % (0.0-10.0); %Lymphocytes 13.5 % (21.0-51.0); %Monocytes 14.1 % (0.0-10.0); %Neutrophils 67.2 % (42.0-75.0); Hemoglobin 8.8 g/dL (14.0-18.0); Mean Corpuscular HGB CONC 33.8 g/dL (32.0-36.0); Mean Corpuscular Hemoglobin 31.8 pg (27.0-31.0); Mean Corpuscular Volume 93.9 fl (78.0-98.0); Mean Platelet Volume 11.6 fL (7.4-10.4); Platelet Count 289 10x3/uL (130-400); RBC Distribution Width 18.6 % (11.5-14.5); Red Blood Cell (RBC) Count 2.77 mill/uL (4.70-6.10); White Blood Cell (WBC) Count 11.4 10x3/uL (4.8-10.8)
[2023-04-04 06:20] LABS: Albumin 2.6 g/dL (3.4-4.8); Anion Gap 14 mmol/L (10-20); BUN (Urea Nitrogen) 24 mg/dL (8.4-25.7); BUN/Creatinine Ratio 4.68; Calc. Creatinine Clearance 15 mL/min (70-130); Calcium 9.3 mg/dL (7.8-10.44); Carbon Dioxide 28 mmol/L (23-31); Chloride 95 mmol/L (98-107); Estimated GFR 12; Glucose 85 mg/dL (80-115); Phosphorus 4.1 mg/dL (2.3-4.7); Sodium 133 mmol/L (136-145)
[2023-04-04] MEDS: Polyethylene Glycol 3350 17 GM Packet PO SCH (08:08)
[2023-04-04] MEDS: Senokot S 8.6-50 MG TAB PO SCH ×2 (08:08→21:03)
[2023-04-04] MEDS: Apixaban 5 MG TAB PO SCH ×2 (09:37→21:03)
[2023-04-04] MEDS: Sacubitril 49 MG/Valsartan 51 MG TABLET PO SCH ×2 (09:37→21:03)
[2023-04-04] MEDS: Prasugrel 10 MG TAB PO SCH (09:38)
[2023-04-04] MEDS: Amiodarone 200 MG TAB PO SCH (09:38)
[2023-04-04] MEDS: Gabapentin 300 MG CAP PO SCH ×2 (09:39→21:03)
[2023-04-04] MEDS: Folic Acid/Vit B Comp W-C PO SCH (09:39)
[2023-04-04] MEDS: Carvedilol 6.25 MG TAB PO SCH ×2 (09:39→21:03)
[2023-04-04] MEDS: Mupirocin 2% Ointment 22 GM Tube TOP SCH ×3 (09:42→21:03)
[2023-04-04] MEDS: Methocarbamol 500 MG TAB PO SCH (09:46)
[2023-04-04 13:30] VITALS: BMI 27.0
[2023-04-04 17:36] LABS: Hematocrit 19.5 % (42.0-52.0); Hemoglobin 6.6 g/dL (14.0-18.0); Platelet Count 331 10x3/uL (130-400)
[2023-04-04] MEDS: traMADol HCl 50 MG TAB PO PRN (21:01)
[2023-04-04] MEDS: Melatonin 3 MG TAB PO PRN (21:02)
[2023-04-04] MEDS: Rosuvastatin 10 MG TAB PO SCH (21:03)
[2023-04-04] MEDS: Transdermal Patch Removal TOP SCH (21:04)
[2023-04-05] MEDS ORDERED: diphenhydrAMINE 25 MG CAP PO SCH (01:00)
[2023-04-05] MEDS ORDERED: traZODone HCl 50 MG TAB PO SCH ×2 (01:00)
[2023-04-05] MEDS: Acetaminophen 325 MG TAB PO PRN ×2 (05:04→17:42)
[2023-04-05] MEDS: Ampicillin 2 GM in Sodium Chloride 0.9% 100 ML IVPB SCH ×2 (05:04→18:03)
[2023-04-05 05:28] LABS: #Basophils 0.1 thou/uL (0.0-0.2); #Eosinphils 0.4 thou/uL (0.0-0.7); #Monocytes 1.4 thou/uL (0.11-0.59); #Neutrophils 7.2 thou/uL (1.40-6.50); %Basophils 0.8 % (0.0-1.0); %Eosinophils 3.9 % (0.0-10.0); %Monocytes 13.4 % (0.0-10.0); %Neutrophils 68.4 % (42.0-75.0); Hematocrit 24.6 % (42.0-52.0); Hemoglobin 8.4 g/dL (14.0-18.0); Mean Corpuscular HGB CONC 34.1 g/dL (32.0-36.0); Mean Corpuscular Hemoglobin 31.3 pg (27.0-31.0); Mean Corpuscular Volume 91.8 fl (78.0-98.0); Mean Platelet Volume 11.1 fL (7.4-10.4); Platelet Count 267 10x3/uL (130-400); RBC Distribution Width 18.7 % (11.5-14.5); Red Blood Cell (RBC) Count 2.68 mill/uL (4.70-6.10); White Blood Cell (WBC) Count 10.5 10x3/uL (4.8-10.8)
[2023-04-05] MEDS: Lidocaine 4% Patch TD PRN (05:44)
[2023-04-05] MEDS ORDERED: Amiodarone 200 MG TAB PO SCH (09:00)
[2023-04-05] MEDS ORDERED: Heparin 10,000 UNITS/ 10 ML VIAL ONE (11:29)
[2023-04-05] MEDS: Sacubitril 49 MG/Valsartan 51 MG TABLET PO SCH (11:51)
[2023-04-05] MEDS: Carvedilol 6.25 MG TAB PO SCH (11:51)
[2023-04-05] MEDS: Gabapentin 300 MG CAP PO SCH (11:57)
[2023-04-05] MEDS: Apixaban 5 MG TAB PO SCH (11:58)
[2023-04-05] MEDS: Senokot S 8.6-50 MG TAB PO SCH (11:59)
[2023-04-05] MEDS: Folic Acid/Vit B Comp W-C PO SCH (11:59)
[2023-04-05] MEDS: Prasugrel 10 MG TAB PO SCH (11:59)
[2023-04-05] MEDS: Methocarbamol 500 MG TAB PO SCH (12:00)
[2023-04-05] MEDS: Mupirocin 2% Ointment 22 GM Tube TOP SCH ×2 (12:02→18:02)
[2023-04-05] MEDS: Polyethylene Glycol 3350 17 GM Packet PO SCH (12:03)
[2023-04-05 15:45] VITALS: BP 121/61; TEMP 98.4
[2023-04-08] MEDS ORDERED: Apixaban 5 MG TAB PO SCH (09:00)
== END 2023-04-05 18:17 | DRG 291 ==
LOC: ERS 11:06 → 2NO 13:01
PROVIDERS: ADMIT Family Medicine; ATTEND Internal Medicine
PROC: 5A1D70Z Performance of Urinary Filtration, Intermittent, Less than 6 Hours Per Day (ICD-10-PCS; principal; 2023-03-17)
PROC: B24BZZ4 Ultrasonography of Heart with Aorta, Transesophageal (ICD-10-PCS; 2023-03-26)
PROC: 02HV33Z Insertion of Infusion Device into Superior Vena Cava, Percutaneous Approach (ICD-10-PCS; 2023-03-29)
PROC: 0DBK8ZZ Excision of Ascending Colon, Via Natural or Artificial Opening Endoscopic (ICD-10-PCS; 2023-03-30)
PROC: 0DBL8ZZ Excision of Transverse Colon, Via Natural or Artificial Opening Endoscopic (ICD-10-PCS; 2023-03-30)
PROC: 0DBN8ZZ Excision of Sigmoid Colon, Via Natural or Artificial Opening Endoscopic (ICD-10-PCS; 2023-03-30)
PROC: 0DBP8ZZ Excision of Rectum, Via Natural or Artificial Opening Endoscopic (ICD-10-PCS; 2023-03-30)
DX: I13.2 Hypertensive heart and chronic kidney disease with heart failure and with stage 5 chronic kidney disease, or end stage renal disease (principal); A41.81 Sepsis due to Enterococcus; J96.01 Acute respiratory failure with hypoxia; N18.6 End stage renal disease; I50.33 Acute on chronic diastolic (congestive) heart failure; Z94.84 Stem cells transplant status; I24.8 Other forms of acute ischemic heart disease; I47.1 Supraventricular tachycardia; I47.20 Ventricular tachycardia, unspecified; E85.9 Amyloidosis, unspecified; I82.612 Acute embolism and thrombosis of superficial veins of left upper extremity; I42.0 Dilated cardiomyopathy; I50.22 Chronic systolic (congestive) heart failure; D63.1 Anemia in chronic kidney disease; M54.30 Sciatica, unspecified side; K21.9 Gastro-esophageal reflux disease without esophagitis; Z66 Do not resuscitate; Z96.652 Presence of left artificial knee joint; H91.90 Unspecified hearing loss, unspecified ear; M54.9 Dorsalgia, unspecified; I25.118 Atherosclerotic heart disease of native coronary artery with other forms of angina pectoris; K13.0 Diseases of lips; I08.1 Rheumatic disorders of both mitral and tricuspid valves; K63.5 Polyp of colon; K64.8 Other hemorrhoids; K57.30 Diverticulosis of large intestine without perforation or abscess without bleeding; E78.2 Mixed hyperlipidemia; I95.9 Hypotension, unspecified; Z99.2 Dependence on renal dialysis; Z88.2 Allergy status to sulfonamides; Z88.8 Allergy status to other drugs, medicaments and biological substances; Z79.82 Long term (current) use of aspirin; Z79.899 Other long term (current) drug therapy; Z95.810 Presence of automatic (implantable) cardiac defibrillator; Z90.81 Acquired absence of spleen; Z95.5 Presence of coronary angioplasty implant and graft; Z82.49 Family history of ischemic heart disease and other diseases of the circulatory system; Z87.891 Personal history of nicotine dependence; I25.2 Old myocardial infarction
CPT/HCPCS: 36415; 36416; 71045; 72131; 72148; 72149; 72157; 74177; 80048; 80053; 80069; 80202; 81001; 83735; 83880; 84484; 85014; 85018; 85025; 85049; 85610; 85652; 85730; 86140; 87040; 87077; 87149; 87186; 88305; 90935; 93005; 93306; 93312; 94640; 96374; G0257; J0282; J0290; J0696; J1100; J1644; J2272; J2704; J3010; J3370; J3475; J3490; J7030; J7070; J7620; J8540; Q9967